=== PATIENT | male | born 1935 | race Caucasian/White ===

== ENCOUNTER 2020-12-31 13:48 | Emergency (ER) | payer MEDICARE, OTHER, SELFPAY ==
--- NOTE | ~2020-12-31 | XR_ITS ---
XR chest 2V 12/31/2020 14:14 Indication: Dizziness and cough Procedure: 2 view chest Comparison: 03/14/2019 Findings: Heart size normal. Status post median sternotomy for CABG. No focal air space disease, pulm onary edema, pleural effusion or suspected pneumothorax. No acute osseous abnormality. Impression: 1: No acute cardiopulmonary disease. Reviewed, dictated and finalized at location A. 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
[2020-12-31 13:49] VITALS: BP 137/69; PULSE 63; RESP 16; TEMP 36.4
--- NOTE | 2020-12-31 13:59 | ECG_ITS ---
Measurements Intervals [place] Rate: 57 P: 34 MO: 186 QRS: 54 QRSD: 138 T: 41 QT: 489 QTc: 478 Interpretive Statements SINUS BRADYCARDIA RIGHT BUNDLE BRANCH BLOCK ABNORMAL ECG Electronically Signed On 12-31-2020 19:43:30 LITHOSTRIPPER by Fermin Brewer D.O.
--- NOTE | 2020-12-31 14:13 | ED.DIZZY ---
HPI - Dizziness General Chief Complaint: Dizziness Stated Complaint: DIZZINESS Time Seen by Provider: 12/31/20 13:56 Source: patient History of Present Illness HPI Narrative: Patient presents with dizziness. Patient reports he was at the store when he stood up felt lightheaded and like he was in a pass out. Symptoms lasted approximately 30 seconds and resolved. He went to a local clinic to be evaluated and they called EMS and referred him to the ER. Reports a history of prior CABG. He reports he feels well now denies any lightheadedness or dizziness. Denies any chest pain or shortness of breath associated with his dizziness denies any recent fevers, cough, congestion. Denies any changes to p.o. intake denies any diarrhea constipation or urinary symptoms Related Data Home Medications Medication Instructions Recorded Confirmed aspirin 02/16/19 atorvastatin 02/16/19 baclofen mg 02/16/19 cetirizine mg 02/16/19 galantamine mg 02/16/19 isosorbide mononitrate mg PO 02/16/19 levothyroxine 02/16/19 memantine mg 02/16/19 metformin mg 02/16/19 metoprolol succinate [Toprol XL] PO 02/16/19 mirabegron [Myrbetriq] mg PO 02/16/19 nitroglycerin mg 02/16/19 olmesartan-hydrochlorothiazide tablet 02/16/19 tamsulosin mg PO 02/16/19 Allergies Allergy/AdvReac Type Severity Reaction Status Date / Time No Known Allergies Allergy Mild Verified 11/14/07 17:42 Review of Systems Review of Systems: CONSTITUTIONAL: Denies fever, chills, or sweats. EYES: Denies visual changes, redness, or discharge. ENT: Denies rhinorrhea, congestion, sore throat, or otalgia. CARDIOVASCULAR: Denies chest pain, palpitations, or edema. RESPIRATORY: Denies cough or dyspnea. GASTROINTESTINAL: Denies abdominal pain, nausea, vomiting, or diarrhea. GENITOURINARY: Denies dysuria or hematuria. SKIN: Denies rash or itching. MUSCULOSKELETAL: Denies back pain, joint pain, or myalgia. NEUROLOGIC: Denies headache, numbness, dizziness, or weakness. PSYCHIATRIC: Denies anxiety or depression. All systems reviewed & are unremarkable except as noted in HPI and below PMFSH Surgical History Surgical History Hx of CABG Social History Social History Smoking status: Current every day smoker Alcohol intake: never Exam Narrative: GENERAL: Well-appearing, well-nourished, and in no acute distress. HEAD: Normocephalic, atraumatic. EYES: PERRLA and EOMI. ENT: Nares clear, no rhinorrhea or epistaxis. Mucous membranes moist. NECK: Supple. No masses. No JVD CHEST: Clear to auscultation. No respiratory distress. No wheezes rales or rhonchi HEART: Regular rate and rhythm. No murmur heard. Normal peripheral pulses. ABDOMEN: Soft, nontender, nondistended, normal active bowel sounds. EXTREMITIES: Normal range of motion. No edema. SKIN: Warm, dry, no rash. NEURO: No focal deficits. Alert and oriented x3. PSYCH: Normal mood and affect. Course Reevaluation(s) Reevaluation #1: Patient is resting comfortably on reevaluation he reports maybe has been having increased urination over the past couple days but came to be without dizziness. He in the family requesting go home. Results reviewed with patient and family patient and family are comfortable outpatient plan Date: 12/31/20 Time: 15:27 Vital Signs Vital signs: Vital Signs Temperature 36.4 C L 12/31/20 13:49 Pulse Rate 63 12/31/20 13:49 Respiratory Rate 16 12/31/20 13:49 Blood Pressure 137/69 12/31/20 13:49 Temperature 36.4 C L 12/31/20 13:49 Pulse Rate 59 L 12/31/20 16:04 Respiratory Rate 16 12/31/20 16:04 Blood Pressure 136/57 L 12/31/20 16:04 Pulse Oximetry 98 12/31/20 16:04 MDM - Dizziness MDM Narrative Medical decision making narrative: H&P as above, vss, pt looks clinically well, exam reassuring, labs with UA concerning for infection and elevated creatinine
[2020-12-31] MEDS: SODIUM CHLORIDE 0.9% IV 500 ML 999 ML IV CONT (14:18)
[2020-12-31 14:35] LABS: Basophils Absolute Auto 0.1 K/mm3 (0.0-0.1); Basophils Percent Auto 1.1 % (0.2-1.2); Eosinophils Absolute Auto 0.4 K/mm3 (0-0.3); Eosinophils Percent Auto 4.1 % (0-4.4); Hematocrit 36.9 % (42.0-52.0); Hemoglobin 12.5 g/dL (14.0-18.0); Immature Granulocyte Absolute 0.03 K/mm3 (0.00-0.031); Immature Granulocyte Percent A 0.3 % (0-0.5); Lymphocytes Absolute Auto 2.62 K/mm3 (0.9-3.2); Lymphocytes Percent Auto 27.1 % (18.3-44.2); Mean Corpuscular HGB Conc 33.9 g/dl (32-36); Mean Corpuscular Hemoglobin 31.5 pg (26-34); Mean Corpuscular Volume 92.9 fl (80-100); Mean Platelet Volume 11.6 fl (7.4-10.4); Monocytes Percent Auto 9.9 % (2.6-8.5); Neutrophils Absolute Auto 5.6 K/mm3 (1.3-6.7); Neutrophils Percent Auto 57.5 % (45.5-73.1); Platelet Count Result 187 k/mm3 (150-375); Red Blood Count 3.97 M/mm3 (4.6-6.20); Red Cell Distribution Width 12.8 % (11.5-14.5); White Blood Count 9.7 K/mm3 (4.5-10.0)
[2020-12-31 14:41] LABS: Alanine Aminotransferase 20 U/L (4-50); Albumin Level 4.3 g/dL (3.5-5.1); Alkaline Phosphatase 68 U/L (38-126); Anion Gap 7 mmol/L (8-16); Aspartate Amino Transferase 27 U/L (17-59); Blood Urea Nitrogen 34 mg/dL (9-20); Calcium 9.9 mg/dL (8.4-10.2); Carbon Dioxide 29 mmol/L (22-30); Chloride 105 mmol/L (98-107); Estimated CRCL calculation 28 ml/min; Estimated Glomerular Filt Rate 36; Glucose 109 mg/dL (65-110); Potassium 4.4 mmol/L (3.4-5.0); Sodium 141 mmol/L (137-145)
[2020-12-31 14:53] LABS: Add Urine Microscopic? YES; Appearance Urine Cloudy (Clear); Bacteria Urine 2+ /hpf; Bilirubin Urine Negative (Negative); Blood Urine Negative (Negative); Color Urine Yellow (Yellow); Glucose Urine UA Negative (Negative); Ketones Urine Negative (Negative); Leukocyte Esterase Ur 2+ LEU/UL (Negative); Mucus Urine Rare /lpf; Nitrate Urine Positive (Negative); Protein Urine Negative (Negative); RBC Urine 0-2 /hpf (0-2); Specific Grav Ur 1.019 (1.001-1.035); Urobilinogen Urine Negative mg/dL (<2.0); WBC Urine 31-50 /hpf
[2020-12-31 16:04] VITALS: BP 136/57; PULSE 59; RESP 16; O2SAT 98
== END 2020-12-31 16:04 | disposition home or self-care (01) ==
PROVIDERS: Emergency Provider Emergency Medicine; PCP Internal Medicine
DX: N39.0 Urinary tract infection, site not specified (principal); R42 Dizziness and giddiness; R79.89 Other specified abnormal findings of blood chemistry; F17.200 Nicotine dependence, unspecified, uncomplicated; Z95.1 Presence of aortocoronary bypass graft
CPT/HCPCS: 36415; 71046; 80053; 81001; 85025; 87077; 87086; 87088; 87186; 93005; 99284; J7040

== ENCOUNTER → 2021-05-17 08:54 | Outpatient (REF) | payer MEDICARE, OTHER, SELFPAY | LOC: ANHLAB 08:54 | PROVIDERS: PCP Internal Medicine; Visit Provider Nurse Practitioner | DX: C44.219 Basal cell carcinoma of skin of left ear and external auricular canal (principal); C44.319 Basal cell carcinoma of skin of other parts of face | CPT/HCPCS: 88305; 88331 ==

== ENCOUNTER → 2021-09-01 17:28 | Outpatient (CLI) | payer MEDICARE, OTHER, SELFPAY ==
--- NOTE | ~2021-09-01 | XR_ITS ---
XR chest 2V DATE: 09/02/2021 10:24 INDICATION: Cough TECHNIQUE: 2 views COMPARISON: 12/31/2020 2 view chest FINDINGS: Status post sternotomy and coronary bypass graft surgery. Normal heart size. Aortic arch ca lcification. No hilar or mediastinal enlargement. No pulmonary infiltrate or consolidation, pleural effusion or pulmonary vascular congestion or pneumo thorax. IMPRESSION: Status post coronary bypass graft surgery No active cardiopulmonary disease Aortic atherosclerosis Reviewed, dictated and finalized at location A.
== END ==
PROVIDERS: PCP Internal Medicine; Visit Provider Internal Medicine
DX: R05.9 Cough, unspecified (principal); I25.10 Atherosclerotic heart disease of native coronary artery without angina pectoris; I70.0 Atherosclerosis of aorta
CPT/HCPCS: 71046

== ENCOUNTER 2021-09-13 14:54 | Emergency (ER) | payer MEDICARE, OTHER, SELFPAY ==
--- NOTE | ~2021-09-13 | XR_ITS ---
XR hip RT min 3V w AP pelvis 09/13/2021 15:18 Indication: Right hip pain Procedure: AP pelvis and 3 views right hip Comparison: No prior studies for comparison. Findings: Pelvic rings are intact. There is mild osteoarthritis of the hips. No fracture or traumatic malalignment. Sacral foramen are symmetric. Impression: 1: Mild osteoarthritis of the right hip. Reviewed, dictated and finalized at location A. Impression: 1: Mild osteoarthritis of the right hip.
[2021-09-13 15:02] VITALS: BP 122/54; PULSE 65; RESP 18; TEMP 36.9; O2SAT 99
--- NOTE | 2021-09-13 15:05 | ED.LOWEXIN ---
HPI - Extremity Injury (Lower) General Chief Complaint: Weakness Stated Complaint: fall, hip injury History of Present Illness HPI Narrative: Pt presents with complaints of right hip pain for quite sometime but worse today. Pt has had frequnt falls per family but patient says he had the pain before that. Pt did fall out of bed today. Pt denies LOC or neck pain. Related Data Home Medications Medication Instructions Recorded Confirmed aspirin 81 mg chewable tablet 02/16/19 atorvastatin 20 mg tablet 02/16/19 baclofen 10 mg tablet mg 02/16/19 cetirizine 10 mg tablet mg 02/16/19 galantamine 8 mg tablet mg 02/16/19 levothyroxine 50 mcg tablet 02/16/19 memantine 5 mg tablet mg 02/16/19 metoprolol succinate 25 mg PO 02/16/19 tablet,extended release 24 hr (Toprol XL) citalopram 10 mg tablet 10 mg PO DAILY 05/17/21 diclofenac potassium PO 05/17/21 magnesium carb,citrate,oxide PO 05/17/21 melatonin 5 mg capsule mg PO .day 05/17/21 vitamin B complex [B PO 05/17/21 Complex-Vitamin B12] Allergies Allergy/AdvReac Type Severity Reaction Status Date / Time No Known Allergies Allergy Mild Verified 11/14/07 17:42 Review of Systems Review of Systems: All systems reviewed & are unremarkable except as noted in HPI and below PMFSH Surgical History Surgical History Hx of CABG Social History Social History Smoking status: Current every day smoker Alcohol intake: never Exam Const: General: healthy appearing and no acute distress Nutritional Appearance: well nourished Orientation/consciousness: patient oriented x3 Limitations: no limitations HENMT: Head: normal to inspection Eyes: Conjunctivae: conjunctivae normal EOM: EOMs intact bilaterally Neck: Neck: normal visual inspection and no meningeal signs Other: no midline tenderness Chest: Chest palpation & inspection: normal inspection of the chest Resp: Effort & Inspection: normal respiratory effort Auscultation: clear to auscultation bilaterally Cardio: Rate: regular rate Rhythm: regular rhythm GI: GI Palp: Yes Soft to palpation Auscultation: normal bowel sounds Back/Spine/Pelvis: Back: no CVA tenderness Cervical Spine: collar present Skin: General skin exam: normal color Wounds: no wounds Neuro: General: patient oriented x3, moves all extremities and no focal motor deficits Speech: normal speech Extrem: General: normal to inspection and no clubbing, cyanosis or edema Other: tender to palpation right hip and pain with active and passive movent of right hip but no obvious deformity or shortening or rotation. Psych: Mental Status: mental status grossly normal Affect: normal affect Attitude: cooperative Course Vital Signs Vital signs: Vital Signs Temperature 98.4 F 09/13/21 15:02 Pulse Rate 65 09/13/21 15:02 Respiratory Rate 18 09/13/21 15:02 Blood Pressure 122/54 L 09/13/21 15:02 Pulse Oximetry 99 09/13/21 15:02 Oxygen Delivery Room Air 09/13/21 15:02 Temperature 98.4 F 09/13/21 15:02 Pulse Rate 65 09/13/21 15:02 Respiratory Rate 18 09/13/21 15:02 Blood Pressure 122/54 L 09/13/21 15:02 Pulse Oximetry 99 09/13/21 15:02 Oxygen Delivery Room Air 09/13/21 15:02 Discharge Plan Discharge Clinical Impression: Arthritis, Frequent falls Patient Disposition: Home, Self-Care Condition: Stable Instructions: Antibiotic Form, Arthritis (ED) Prescriptions: New hydrocodone-acetaminophen 5-325 mg tablet 1 tablet PO Q8H PRN (Reason: pain) Qty: 10 0RF No Action atorvastatin 20 mg tablet cetirizine 10 mg tablet baclofen 10 mg tablet levothyroxine 50 mcg tablet metoprolol succinate [Toprol XL] 25 mg tablet extended release 24 hr PO galantamine 8 mg tablet memantine 5 mg tablet
[2021-09-13] MEDS: KETOROLAC 30 MG/ML VIAL (*BKC) IM (15:19)
--- NOTE | 2021-09-13 19:27 | PCCCNOTE ---
Late entry: Called by ER Charge at 1620 for resources for the patient. Met with Dr. Davidson, patient will be discharged today but requesting to meet with patient about op therapy, and future needs for assisted living or senior care. Met with patient at bedside, he lives with his and uses a walker intermittently for mobility. Provided resources for op therapy, home health and encouraged to make contact with PCP to get the most appropriate ordered. Provided resources for [facility] facilities and the phone number for area of aging. Patient did not think that he needed senior care facilities at this time. Patient verbalized understanding. Updated give to Dr. Davidson.
== END 2021-09-13 17:14 | disposition home or self-care (01) ==
PROVIDERS: Emergency Provider Emergency Medicine; PCP Internal Medicine
DX: M16.11 Unilateral primary osteoarthritis, right hip (principal); R29.6 Repeated falls; Z79.82 Long term (current) use of aspirin; Z95.1 Presence of aortocoronary bypass graft; F17.200 Nicotine dependence, unspecified, uncomplicated
CPT/HCPCS: 73502; 96372; 99283; J1885

== ENCOUNTER 2021-09-20 15:35 | Inpatient (IN) | payer MEDICARE, OTHER, SELFPAY ==
[2021-09-20] VITALS (27 sets, daily range): BP systolic 98–151; BP diastolic 55–79; PULSE 73–87; RESP 16–21; TEMP 36.5–36.6; O2SAT 90–100; BMI 27.5
--- NOTE | ~2021-09-20 | CT_ITS ---
EXAMINATION: CT brain wo con DATE: 09/20/2021 17:33 INDICATION: AMS . TECHNIQUE: Computed tomography (CT) of the head was performed without intravenous contrast. The mA wa s adjusted according to patient size. Iterative reconstruction technique was employed. The dose-lengt h product was 681.00 mGy-cm. COMPARISON: None FINDINGS: No acute intracranial hemorrhage or extra-axial fluid collection. No hydrocephalus, mass, or herniation. No acute ischemic infarct. Unremarkable dural venous sinus attenuation. No acute osseous abnormality. The aerated spaces are clear. Moderate atrophy and mild chronic white matter change. Atherosclerotic intracranial calcification. Ol d left basal ganglia lacunar infarct. Bilateral lens replacements. IMPRESSION: No acute intracranial process. Reviewed, dictated and finalized at location K.
--- NOTE | ~2021-09-20 | XR_ITS ---
XR chest 2V DATE: 09/20/2021 17:45 INDICATION: Cough, confusion, stroke like symptoms. History of CABG. TECHNIQUE: AP and lateral views COMPARISON: 09/01/2021 2 view chest FINDINGS: Mild infiltrate or atelectasis in the lower lung zones, left greater than right. Status post sternotomy and coronary bypass graft surgery. Normal heart size. No pleural effusion or p ulmonary vascular congestion or pneumothorax. IMPRESSION: Mild bibasilar infiltrate or atelectasis, left greater than right Reviewed, dictated and finalized at location B.
[2021-09-20 15:46] LABS: Glucose Point of Care 137 mg/dl (65-105)
--- NOTE | 2021-09-20 15:52 | ECG_ITS ---
Measurements Intervals [place] Rate: 80 P: 5 LA: 154 QRS: 74 QRSD: 134 T: 29 QT: 425 QTc: 492 Interpretive Statements SINUS RHYTHM WITH SINUS ARRHYTHMIA RIGHT BUNDLE BRANCH BLOCK COMPARED TO ECG 12/31/2020 14:21:27 HEART RATE HAS INCREASED Electronically Signed On 09-20-2021 16:39:51 CDT by Graham Alfredo M.D.
[2021-09-20 16:09] LABS: Basophils Percent Auto 0.2 % (0.2-1.2); Eosinophils Percent Auto 0.7 % (0-4.4); Hematocrit 34.7 % (42.0-52.0); Hemoglobin 11.4 g/dL (14.0-18.0); Immature Granulocyte Absolute 0.06 K/mm3 (0.00-0.031); Immature Granulocyte Percent A 1.1 % (0-0.5); Lymphocytes Absolute Auto 1.02 K/mm3 (0.9-3.2); Lymphocytes Percent Auto 18.9 % (18.3-44.2); Mean Corpuscular HGB Conc 32.9 g/dl (32-36); Mean Corpuscular Hemoglobin 30.3 pg (26-34); Mean Corpuscular Volume 92.3 fl (80-100); Mean Platelet Volume 10.9 fl (7.4-10.4); Monocytes Absolute Auto 0.6 K/mm3 (0.1-0.6); Monocytes Percent Auto 10.8 % (2.6-8.5); Neutrophils Absolute Auto 3.7 K/mm3 (1.3-6.7); Neutrophils Percent Auto 68.3 % (45.5-73.1); Platelet Count Result 166 k/mm3 (150-375); Red Blood Count 3.76 M/mm3 (4.6-6.20); Red Cell Distribution Width 13.9 % (11.5-14.5); White Blood Count 5.4 K/mm3 (4.5-10.0)
[2021-09-20 16:12] LABS: Add Urine Microscopic? YES; Appearance Urine Slightly Cloudy (Clear); Bilirubin Urine Negative (Negative); Blood Urine 2+ (Negative); Color Urine Yellow (Yellow); Glucose Urine UA Negative (Negative); Ketones Urine Negative (Negative); Leukocyte Esterase Ur 1+ LEU/UL (Negative); Nitrate Urine Positive (Negative); Protein Urine 1+ mg/dL (Negative); Urobilinogen Urine 0.2 mg/dL (<2.0)
[2021-09-20 16:17] LABS: Alanine Aminotransferase 36 U/L (6-50); Albumin Level 3.8 g/dL (3.5-5.1); Alkaline Phosphatase 69 U/L (38-126); Anion Gap 10 mmol/L (8-16); Aspartate Amino Transferase 68 U/L (17-59); Bilirubin,Total 1.1 mg/dL (0.2-1.3); Blood Urea Nitrogen 56 mg/dL (9-20); Calcium 8.9 mg/dL (8.4-10.2); Carbon Dioxide 26 mmol/L (22-30); Chloride 98 mmol/L (98-107); Estimated CRCL calculation 24 ml/min; Estimated Glomerular Filt Rate 30; Glucose 117 mg/dL (65-110); Potassium 4.4 mmol/L (3.4-5.0); Sodium 134 mmol/L (137-145)
[2021-09-20 16:21] LABS: Bacteria Urine 2+ /hpf; Mucus Urine Rare /lpf; Squamous Epithelial Cell Urine Rare /hpf (Few); WBC Clumps Urine Present /HPF; WBC Urine 16-20 /hpf
[2021-09-20 16:29] LABS: Prothrombin Time 12.9 Seconds (11.1-14.7)
[2021-09-20 16:30] LABS: Partial Thromboplastin Time 28.1 SECONDS (22.3-36.8)
[2021-09-20 16:31] LABS: Amphetamine Screen Urine Negative (Negative); Barbiturate Screen Urine Negative (Negative); Benzodiazepines Screen Urine Negative (Negative); Cannabinoid Screen Urine Negative (Negative); Cocaine Screen Urine Negative (Negative); Methadone Screen Urine Negative (Negative); Opiate Screen Urine Positive (Negative); Phencyclidine Screen Urine Negative (Negative)
--- NOTE | 2021-09-20 17:09 | ED.FALL ---
HPI - Fall General Chief Complaint: Fall <Faina Escobar PA-C - Last Filed: 09/20/21 18:19> Stated Complaint: MULTIPLE FALLS, STROKE SYMPTOMS (FAST -) <Faina Escobar PA-C - Last Filed: 09/20/21 18:19> Time Seen by Provider: 09/20/21 16:51 <Faina Escobar PA-C - Last Filed: 09/20/21 18:19> History of Present Illness HPI Narrative: Patient is an 86-year-old male with history of hypertension, Alzheimer's dementia, diabetes, CAD s/p CABG here for evaluation with his daughter for evaluation of multiple medical complaints. History obtained largely from daughter as patient is a poor historian. Daughter tells me that patient has been not but is up for the past several weeks. She states that he has been weak when he ambulates, has had intermittent troubles with word finding, been incontinent of stool and urine, and has been more confused than his baseline. He lives at home with his , who also has Alzheimer's dementia. Daughter tells me that they have had trouble taking care of him at home and are looking into obtaining care at home. Additionally reports that patient has had a cough over the past several, COVID test have been negative. Patient denies any chest pain, shortness of breath, headaches, abdominal pain. <Faina Escobar PA-C - Last Filed: 09/20/21 18:19> Related Data Home Medications: Home Medications Medication Instructions Recorded Confirmed aspirin 81 mg chewable tablet 02/16/19 atorvastatin 20 mg tablet 02/16/19 baclofen 10 mg tablet mg 02/16/19 cetirizine 10 mg tablet mg 02/16/19 galantamine 8 mg tablet mg 02/16/19 levothyroxine 50 mcg tablet 02/16/19 memantine 5 mg tablet mg 02/16/19 metoprolol succinate 25 mg PO 02/16/19 tablet,extended release 24 hr (Toprol XL) citalopram 10 mg tablet 10 mg PO DAILY 05/17/21 diclofenac potassium PO 05/17/21 magnesium carb,citrate,oxide PO 05/17/21 melatonin 5 mg capsule mg PO .day 05/17/21 vitamin B complex [B PO 05/17/21 Complex-Vitamin B12] <Faina Escobar PA-C - Last Filed: 09/20/21 18:19> Allergies/Adverse Reactions: Allergies Allergy/AdvReac Type Severity Reaction Status Date / Time No Known Allergies Allergy Mild Verified 11/14/07 17:42 <Faina Escobar PA-C - Last Filed: 09/20/21 18:19> Review of Systems Review of Systems: Gen: Denies fevers or chills Eyes: Denies eye pain or visual change ENT: Denies congestion Respiratory: Reports cough. Denies shortness of breath CV: Denies chest pain or palpitations GI: Denies abdominal pain nausea, emesis or diarrhea : denies burning, urgency, frequency or hematuria Musculoskeletal: Denies back pain or muscle pain Neuro: Denies numbness, tingling, weakness or focal weakness Skin: Denies rash Except as documented, all other systems reviewed and negative <Faina Escobar PA-C - Last Filed: 09/20/21 18:19> [facility] Surgical History Surgical History: Surgical History Hx of CABG <Faina Escobar PA-C - Last Filed: 09/20/21 18:19> Social History Social History: Social History Smoking status: Current every day smoker Alcohol intake: never <Faina Escobar PA-C - Last Filed: 09/20/21 18:19> Exam Narrative: APPEARANCE: Well appearing, no pain in distress, well-nourished. Head: Normocephalic and atraumatic. EYES: PERRLA/EOMI, conjunctivae clear NOSE: No nasal drainage EARS: External ear normal in appearance THROAT: Oropharynx is clear. Mucous membranes are moist. NECK: Supple. No adenopathy, no masses. RESPIRATORY: Airway patent, respirations nonlabored. expiratory wheezing in right upper lung nascimento. no rales, rhonchi. CARDIOVASCULAR: Regular rate and rhythm without murmurs, rubs, or gallops. ABDOMINAL: Normoactive bowel sounds. Soft, nontender, nondistended. No re
[2021-09-20] MEDS: ALBUTEROL SULFATE NEB 2.5 MG/3 ML INH INHALATION (18:24)
[2021-09-20] MEDS: SODIUM CHLORIDE 0.9% IV 1,000 ML 999 ML IV CONT (19:24)
[2021-09-20 19:49] LABS: SARS-CoV-2 RNA PCR Positive
--- NOTE | 2021-09-20 22:57 | PM.IMHP ---
H&P: HPI History of Present Illness Date/Time: 09/20/21 22:00 Chief Complaint: Confusion Narrative: this is an 86-year-old male patient with a history of Alzheimer's. The patient was brought into the emergency room by his daughter today due to generalized weakness and confusion over the last several weeks. The patient lives with his who also has Alzheimer's dementia. The patient's daughter is concerned about finding placement for the patient. She is concerned about the couple living home by themselves with dementia. The patient had some wheezing in the emergency room and was given a nebulizer treatment. He has evidence of possible pneumonia on chest x-ray and his COVID test was found to be positive. He also has evidence of a UTI with elevated white blood cells nitrates and bacteria. Patient was started on Rocephin and azithromycin in the emergency room. His creatinine is up to 2.1 from 1.8 noted on 12/31/2020. the patient was given IV fluids in the emergency room. 1+ leukocyte at esterase with 2+ urine bacteria. The patient was also positive for opioids. He was also positive for COVID here. Patient's oxygen level dropped down to 91% at 1 point in the emergency room and the patient was started on oxygen at 2 L per nasal cannula. He was given Rocephin, azithromycin, albuterol, and IV fluids in the emergency room. The patient is being admitted to inpatient services on the date of service of 09/20/2021. Review of Systems Review of Systems: All systems reviewed & are unremarkable except as noted in HPI and below Constitutional: Constitutional: Reports as per HPI and Reports no additional constitutional complaints Eyes: Eyes: Reports as per HPI and Reports no additional eye complaints ENT: Reports system reviewed and no additional complaints, except as documented and Reports Normal hearing present Cardiovascular: Cardiovascular: Reports no additional cardiovascular complaints Respiratory: Respiratory: Reports no additional respiratory complaints and Reports no additional respiratory complaints Gastrointestinal: Gastrointestinal: Reports as per HPI and Reports no additional gastrointestinal complaints Musculoskeletal: Musculoskeletal: Reports no additional musculoskeletal complaints Integumentary/Breasts: Skin/Breast: Reports system reviewed and no additional complaints, except as docu and Reports as per HPI Neurologic: Reports system reviewed and no additional complaints, except as documented, Reports as per HPI and Reports Normal hearing present Psychiatric: Psychiatric: Reports no additional psychiatric complaints and Reports as per HPI Endocrine: Endocrine: Reports no additional endocrine complaints Hematologic/Lymphatic: Hematologic/Lymphatic: Reports no additional hematologic/lymphatic complaints Allergic/Immunologic: Allergic/Immunologic: Reports no additional allergic/immunologic complaints [facility] Past Medical History Medical History (Updated 09/20/21 @ 23:33 by Ela Yi NP) Basal cell carcinoma of scalp BPH (benign prostatic hyperplasia) CAD (coronary artery disease) Dementia DM2 (diabetes mellitus, type 2) Gout HTN (hypertension) with goal to be determined Hyperlipidemia Hypothyroidism Surgical History Surgical History (Updated 09/20/21 @ 23:08 by Ela Yi NP) History of tonsillectomy Hx laparoscopic cholecystectomy Hx of CABG Family History Family History (Updated 09/20/21 @ 23:10 by Ela Yi NP) Mother Acute myocardial infarction Father Cancer Sibling Cancer Social History Social History (Updated 09/20/21 @ 23:16 by Ela Yi NP) Social History: the patient is and lives with his . He tells me that he has 3 children. 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 He is a former smoker and denies any alcohol marijuana or illicit drugs. Code status full code Smoking status: Former smoker Alcohol intake:
[2021-09-20 23:57] LABS: Alanine Aminotransferase 33 U/L (6-50); Estimated CRCL calculation 26 ml/min; Estimated Glomerular Filt Rate 34
[2021-09-21] VITALS (7 sets, daily range): BP systolic 113–153; BP diastolic 59–65; PULSE 70–77; RESP 16–18; TEMP 35.5–36.2; O2SAT 91–99
[2021-09-21] LABS: INR 1.1; Prothrombin Time 13.3 Seconds (11.1-14.7)
[2021-09-21] MEDS: CITALOPRAM HYDROBROMIDE 10 MG TABLET PO ×2 (00:11→20:46)
[2021-09-21] MEDS: guaiFENesin 600 MG/DEXTROMETHORPHAN 30 MG SR TAB 12 HR 1 TAB PO ×3 (00:11→20:45)
[2021-09-21] MEDS: LORATADINE 5 MG TABLET PO ×2 (00:11→20:45)
[2021-09-21] MEDS: REMDESIVIR 200 MG/NS 250 ML 200 MG/250 ML BAG 250 MG IVPB (00:32)
--- NOTE | 2021-09-21 00:51 | ADMGEN ---
This patient, Jennifer Conley, was admitted to [facility] Surg Room 330-01. Patient/family oriented to hospital policies and general routines including ID bracelet, bed and alarms, visiting hours, pain management, procedures, bathroom and other care routines, personal items, smoking policy, room service/diet, and visiting hours. Information on how to activate the Rapid Response Team has been discussed. Patient/Family are encouraged to report perceived risks to care and to ask questions if they do not understand what they are told or what they should do.
[2021-09-21] MEDS: LEVOTHYROXINE SODIUM 50 MCG TABLET PO (06:23)
[2021-09-21 06:46] LABS: Basophils Percent Auto 0.4 % (0.2-1.2); Eosinophils Absolute Auto 0.1 K/mm3 (0-0.3); Eosinophils Percent Auto 2.5 % (0-4.4); Hematocrit 33.8 % (42.0-52.0); Hemoglobin 10.7 g/dL (14.0-18.0); Immature Granulocyte Absolute 0.04 K/mm3 (0.00-0.031); Immature Granulocyte Percent A 0.9 % (0-0.5); Lymphocytes Absolute Auto 0.98 K/mm3 (0.9-3.2); Lymphocytes Percent Auto 21.9 % (18.3-44.2); Mean Corpuscular HGB Conc 31.7 g/dl (32-36); Mean Corpuscular Hemoglobin 30.1 pg (26-34); Mean Corpuscular Volume 94.9 fl (80-100); Mean Platelet Volume 11.1 fl (7.4-10.4); Monocytes Absolute Auto 0.4 K/mm3 (0.1-0.6); Monocytes Percent Auto 8.3 % (2.6-8.5); Platelet Count Result 163 k/mm3 (150-375); Red Blood Count 3.56 M/mm3 (4.6-6.20); Red Cell Distribution Width 13.9 % (11.5-14.5); White Blood Count 4.5 K/mm3 (4.5-10.0)
[2021-09-21 06:59] LABS: INR 1.1; Prothrombin Time 13.5 Seconds (11.1-14.7)
[2021-09-21 07:04] LABS: Lactic Acid Reflex 0.6 mmol/L (0.7-2.0)
[2021-09-21 07:54] LABS: Glucose Point of Care 94 mg/dl (65-105)
[2021-09-21 08:03] LABS: Alanine Aminotransferase 33 U/L (6-50); Albumin Level 3.4 g/dL (3.5-5.1); Alkaline Phosphatase 61 U/L (38-126); Anion Gap 8 mmol/L (8-16); Aspartate Amino Transferase 66 U/L (17-59); Blood Urea Nitrogen 46 mg/dL (9-20); Calcium 8.6 mg/dL (8.4-10.2); Carbon Dioxide 28 mmol/L (22-30); Chloride 100 mmol/L (98-107); Estimated CRCL calculation 28 ml/min; Estimated Glomerular Filt Rate 36; Glucose 98 mg/dL (65-110); Lactate Dehydrogenase 673 U/L (313-618); Potassium 3.9 mmol/L (3.4-5.0); Sodium 136 mmol/L (137-145)
[2021-09-21] MEDS: ASPIRIN 81 MG CHEWABLE TABLET PO (09:15)
[2021-09-21] MEDS: allopurinoL 100 MG TABLET PO (09:15)
[2021-09-21] MEDS: MEMANTINE 10 MG TABLET PO ×2 (09:15→17:21)
[2021-09-21] MEDS: CYANOCOBALAMIN 1,000 MCG TABLET 1000 MCG PO (09:15)
[2021-09-21] MEDS: TAMSULOSIN HCL 0.4 MG CAPSULE PO (09:15)
[2021-09-21] MEDS: ATORVASTATIN 20 MG TABLET PO (09:15)
[2021-09-21] MEDS: METOPROLOL SUCCINATE EXT REL 25 MG TABCR PO (09:16)
[2021-09-21] MEDS: DEXAMETHASONE 2 MG TABLET 6 MG PO (09:16)
[2021-09-21] MEDS: ENOXAPARIN 40 MG/0.4 ML SYRINGE SUB-Q (09:16)
[2021-09-21] MEDS: FLUTICASONE PROPIONATE 0.05% NA SPR 16 GM BTL (*BKC) 1 SPRAY NASAL (09:16)
[2021-09-21] MEDS: MIRABEGRON 50 MG ER TABLET PO (09:16)
[2021-09-21] MEDS: GALANTAMINE HYDROBROMIDE 8 MG TABLET 16 MG PO ×2 (09:16→17:21)
[2021-09-21 11:49] LABS: Glucose Point of Care 142 mg/dl (65-105)
--- NOTE | 2021-09-21 12:20 | PM.IMPN ---
Progress Note: A&P Assessment and Plan (1) COVID: Code(s): U07.1 - COVID-19 Status: Acute Assessment and Plan: - requiring oxygen at 2 L per nasal cannula. Patient's O2 saturations dropped down to 90% - continue to monitor labs - continue with REMdesivir - continue with Decadron - continue with contact and respiratory isolation - possible pneumonia was seen on chest x-ray. He was given a azithromycin in the emergency room. But this could possibly just be the COVID. I did not continue with the a azithromycin at this time. - P.r.n. albuterol - continue guaifenesin (2) Urinary tract infection: Code(s): N39.0 - Urinary tract infection, site not specified Status: Acute Assessment and Plan: - continue with Rocephin - urine culture pending (3) HTN (hypertension) with goal to be determined: Code(s): I10 - Essential (primary) hypertension Status: Acute Assessment and Plan: - Benicar on hold for now due to possible acute on chronic renal failure - continue with metoprolol (4) DM2 (diabetes mellitus, type 2): Code(s): E11.9 - Type 2 diabetes mellitus without complications Status: Acute Assessment and Plan: - patient no longer on diabetic medication. His blood sugar was 117-137 today. - Since the patient is on Decadron I did order him Accu-Cheks with sliding scale. (5) Acute kidney injury: Code(s): N17.9 - Acute kidney failure, unspecified Status: Acute Assessment and Plan: Creatinine is 1.9 this morning. Baseline is about the same. Monitor (6) Gout: Code(s): M10.9 - Gout, unspecified Status: Acute Assessment and Plan: - continue with allopurinol (7) Hyperlipidemia: Code(s): E78.5 - Hyperlipidemia, unspecified Status: Acute Assessment and Plan: - continue with simvastatin for now however of his liver enzymes become elevated may consider Holding. (8) BPH (benign prostatic hyperplasia): Code(s): N40.0 - Benign prostatic hyperplasia without lower urinary tract symptoms Status: Acute Assessment and Plan: - Continue with Flomax (9) Hypothyroidism: Code(s): E03.9 - Hypothyroidism, unspecified Status: Acute Assessment and Plan: - continue with home dose of levothyroxine (10) Dementia: Code(s): F03.90 - Unspecified dementia without behavioral disturbance Status: Acute Assessment and Plan: - continue with Arnol Subjective Date/time seen: 09/21/21 12:20 Doing okay today. No new complaints. No chest pain, denies any excessive shortness of breath. Currently on 2liters of oxygen per nasal cannula Exam Const: General: cooperative, comfortable, no acute distress, well developed, alert, awake, Physically active and ill appearing Nutritional Appearance: average body habitus and well nourished Orientation/consciousness: oriented to person, oriented to place, oriented to time and patient oriented x3 Limitations: no limitations HENMT: Head: normal to inspection, No palpable skull fracture present, normocephalic and atraumatic Ears: hearing grossly normal bilaterally and external ears normal General nose exam: Normal external nose present and Normal nares present Eyes: General: appearance normal, both eyes and all related structures Alignment and Position: alignment normal Periorbital: periorbital findings normal Eyelids: eyelids normal Sclera: sclerae normal Pupils: Equal, round and reactive pupils present EOM: EOMs intact bilaterally Neck: Neck: normal visual inspection, full ROM, no lymphadenopathy, trachea midline and supple Lymphatic: no lymphadenopathy noted Chest: Chest palpation & inspection: normal inspection of the chest Resp: Effort & Inspection: normal respiratory effort Auscultation: clear to auscultation bilaterally Percussion: percussion normal Other: patient was placed on oxygen at 2 L per nasal cannula.
[2021-09-21 16:14] LABS: Glucose Point of Care 167 mg/dl (65-105)
[2021-09-21 21:44] LABS: Glucose Point of Care 147 mg/dl (65-105)
[2021-09-21] MEDS: REMDESIVIR 100 MG/NS 250 ML 100 MG/250 ML BAG 250 MG IVPB (22:38)
[2021-09-22 05:41] VITALS: BP 160/83; PULSE 69; RESP 18; TEMP 36.1; O2SAT 95
[2021-09-22 06:59] LABS: Hematocrit 38.1 % (42.0-52.0); Hemoglobin 12.6 g/dL (14.0-18.0); Mean Corpuscular HGB Conc 33.1 g/dl (32-36); Mean Corpuscular Hemoglobin 30.7 pg (26-34); Mean Corpuscular Volume 92.7 fl (80-100); Mean Platelet Volume 10.9 fl (7.4-10.4); Platelet Count Result 189 k/mm3 (150-375); Red Blood Count 4.11 M/mm3 (4.6-6.20); Red Cell Distribution Width 13.4 % (11.5-14.5); White Blood Count 11.4 K/mm3 (4.5-10.0)
[2021-09-22 07:21] LABS: INR 1.1; Prothrombin Time 13.7 Seconds (11.1-14.7)
[2021-09-22 07:37] LABS: Alanine Aminotransferase 38 U/L (6-50); Anion Gap 12 mmol/L (8-16); Blood Urea Nitrogen 45 mg/dL (9-20); CRP 5.2 mg/dL (<1.0); Calcium 9.1 mg/dL (8.4-10.2); Carbon Dioxide 26 mmol/L (22-30); Chloride 99 mmol/L (98-107); Estimated CRCL calculation 31 ml/min; Estimated Glomerular Filt Rate 41; Glucose 130 mg/dL (65-110); Potassium 4.4 mmol/L (3.4-5.0); Sodium 137 mmol/L (137-145)
[2021-09-22 07:41] LABS: Glucose Point of Care 137 mg/dl (65-105)
[2021-09-22 10:00] VITALS: PULSE 68; RESP 18; O2SAT 91
[2021-09-22] MEDS: ATORVASTATIN 20 MG TABLET PO (10:11)
[2021-09-22] MEDS: ENOXAPARIN 40 MG/0.4 ML SYRINGE SUB-Q (10:11)
[2021-09-22] MEDS: ASPIRIN 81 MG CHEWABLE TABLET PO (10:11)
[2021-09-22] MEDS: DEXAMETHASONE 2 MG TABLET 6 MG PO (10:11)
[2021-09-22] MEDS: CYANOCOBALAMIN 1,000 MCG TABLET 1000 MCG PO (10:11)
[2021-09-22] MEDS: allopurinoL 100 MG TABLET PO (10:11)
[2021-09-22 10:12] VITALS: PULSE 68
[2021-09-22] MEDS: guaiFENesin 600 MG/DEXTROMETHORPHAN 30 MG SR TAB 12 HR 1 TAB PO ×2 (10:12→20:44)
[2021-09-22] MEDS: METOPROLOL SUCCINATE EXT REL 25 MG TABCR PO (10:12)
[2021-09-22] MEDS: FLUTICASONE PROPIONATE 0.05% NA SPR 16 GM BTL (*BKC) 1 SPRAY NASAL (10:12)
[2021-09-22] MEDS: GALANTAMINE HYDROBROMIDE 8 MG TABLET 16 MG PO ×2 (10:12→17:59)
[2021-09-22] MEDS: MEMANTINE 10 MG TABLET PO ×2 (10:12→17:59)
[2021-09-22] MEDS: MIRABEGRON 50 MG ER TABLET PO (10:12)
[2021-09-22] MEDS: TAMSULOSIN HCL 0.4 MG CAPSULE PO (10:12)
[2021-09-22 11:35] LABS: Glucose Point of Care 133 mg/dl (65-105)
[2021-09-22 13:52] VITALS: BP 121/92; PULSE 64; RESP 18; TEMP 35.7; O2SAT 96
[2021-09-22 16:19] LABS: Glucose Point of Care 170 mg/dl (65-105)
--- NOTE | 2021-09-22 18:10 | PM.IMPN ---
Progress Note: A&P Assessment and Plan (1) COVID: Code(s): U07.1 - COVID-19 Status: Acute Assessment and Plan: - requiring oxygen at 2 L per nasal cannula. Patient's O2 saturations dropped down to 90% - continue to monitor labs - continue with REMdesivir - continue with Decadron - continue with contact and respiratory isolation - possible pneumonia was seen on chest x-ray. He was given a azithromycin in the emergency room. But this could possibly just be the COVID. I did not continue with the a azithromycin at this time. - P.r.n. albuterol - continue guaifenesin (2) Urinary tract infection: Code(s): N39.0 - Urinary tract infection, site not specified Status: Acute Assessment and Plan: Urine culture showed pansensitive Citrobacter, continue Rocephin (3) HTN (hypertension) with goal to be determined: Code(s): I10 - Essential (primary) hypertension Status: Acute Assessment and Plan: Hold nephrotoxic agents, stable (4) DM2 (diabetes mellitus, type 2): Code(s): E11.9 - Type 2 diabetes mellitus without complications Status: Acute Assessment and Plan: Accu-Cheks plus sliding scale insulin, stable (5) Acute kidney injury: Code(s): N17.9 - Acute kidney failure, unspecified Status: Acute Assessment and Plan: Improving, down to 1.6 today (6) Gout: Code(s): M10.9 - Gout, unspecified Status: Acute Assessment and Plan: - continue with allopurinol (7) Hyperlipidemia: Code(s): E78.5 - Hyperlipidemia, unspecified Status: Acute Assessment and Plan: - continue with simvastatin for now however of his liver enzymes become elevated may consider Holding. (8) BPH (benign prostatic hyperplasia): Code(s): N40.0 - Benign prostatic hyperplasia without lower urinary tract symptoms Status: Acute Assessment and Plan: - Continue with Flomax (9) Hypothyroidism: Code(s): E03.9 - Hypothyroidism, unspecified Status: Acute Assessment and Plan: - continue with home dose of levothyroxine (10) Dementia: Code(s): F03.90 - Unspecified dementia without behavioral disturbance Status: Acute Assessment and Plan: - continue with Namenda Subjective Date/time seen: 09/22/21 18:10 Interval history: No overnight events noted. No chest pain or shortness of breath. No nausea, vomiting or diarrhea. No fevers or chills. Review of Systems Review of Systems: All systems reviewed & are unremarkable except as noted in HPI and below Exam Narrative: General: No acute distress, alert and oriented per baseline HEENT: Atraumatic, normocephalic, mucous membranes moist CV: Regular rate and rhythm, S1, S2 Lungs: Clear to auscultation bilaterally, no rales or crackles noted, no wheezes, good air entry Abdomen: Soft, nontender, nondistended Extremities: Normal to inspection Skin: No rashes noted, no lesions or wounds seen Psych: Euthymic, normal affect Objective Data Vital Signs Vital Signs: Vital Signs - 24 hr 09/21/21 21:36 09/21/21 20:00 09/22/21 05:41 Temperature 96.7 F L 96.9 F L Pulse Rate 70 70 69 Respiratory Rate 18 18 18 Blood Pressure 153/65 H 160/83 H Pulse Oximetry 92 92 95 Oxygen Delivery Room Air 09/22/21 10:12 09/22/21 10:00 09/22/21 13:52 Temperature 96.3 F L Pulse Rate 68 68 64 Respiratory Rate 18 18 Blood Pressure 121/92 H Pulse Oximetry 91 96 Oxygen Delivery Room Air Intake/Output Intake/Output: Intake & Output 09/19/21 09/20/21 09/21/21 09/22/21 23:59 23:59 23:59 23:59 Intake Total 1300 2960 1900 Output Total 200 Balance 1300 2960 1700 Meds/Results Medications: Active Medications Generic Name Dose Route Start Last Admin Trade Name Freq PRN Reason Stop Dose Admin Acetaminophen 500 mg 09/20/21 23:26 Acetaminophen 500 Mg Tablet PO Q8H PRN Pain (Scale Score 1-3)
[2021-09-22] MEDS: CITALOPRAM HYDROBROMIDE 10 MG TABLET PO (20:44)
[2021-09-22] MEDS: REMDESIVIR 100 MG/NS 250 ML 100 MG/250 ML BAG 250 MG IVPB (20:44)
[2021-09-22] MEDS: LORATADINE 5 MG TABLET PO (20:44)
[2021-09-22 21:23] LABS: Glucose Point of Care 166 mg/dl (65-105)
[2021-09-22 22:00] VITALS: BP 148/72; PULSE 60; RESP 18; TEMP 35.8; O2SAT 95
[2021-09-23] MEDS: LEVOTHYROXINE SODIUM 50 MCG TABLET PO (05:22)
[2021-09-23 06:00] VITALS: BP 147/73; PULSE 55; RESP 16; TEMP 35.8; O2SAT 98
[2021-09-23 08:00] VITALS: BP 148/56; PULSE 57; RESP 18; TEMP 35.9; O2SAT 95
[2021-09-23 08:03] LABS: INR 1.2; Prothrombin Time 14.4 Seconds (11.1-14.7)
[2021-09-23 08:14] LABS: Alanine Aminotransferase 36 U/L (6-50); Estimated CRCL calculation 31 ml/min; Estimated Glomerular Filt Rate 41
[2021-09-23] MEDS: TAMSULOSIN HCL 0.4 MG CAPSULE PO (08:30)
[2021-09-23] MEDS: DEXAMETHASONE 2 MG TABLET 6 MG PO (08:30)
[2021-09-23] MEDS: guaiFENesin 600 MG/DEXTROMETHORPHAN 30 MG SR TAB 12 HR 1 TAB PO ×2 (08:30→21:05)
[2021-09-23] MEDS: MIRABEGRON 50 MG ER TABLET PO (08:31)
[2021-09-23] MEDS: ATORVASTATIN 20 MG TABLET PO (08:31)
[2021-09-23] MEDS: GALANTAMINE HYDROBROMIDE 8 MG TABLET 16 MG PO ×2 (08:32→18:17)
[2021-09-23] MEDS: ASPIRIN 81 MG CHEWABLE TABLET PO (08:32)
[2021-09-23] MEDS: MEMANTINE 10 MG TABLET PO ×2 (08:32→18:17)
[2021-09-23] MEDS: ENOXAPARIN 40 MG/0.4 ML SYRINGE SUB-Q (08:32)
[2021-09-23] MEDS: CYANOCOBALAMIN 1,000 MCG TABLET 1000 MCG PO (08:32)
[2021-09-23] MEDS: allopurinoL 100 MG TABLET PO (08:32)
[2021-09-23] MEDS: METOPROLOL SUCCINATE EXT REL 25 MG TABCR PO (08:33)
[2021-09-23] MEDS: FLUTICASONE PROPIONATE 0.05% NA SPR 16 GM BTL (*BKC) 1 SPRAY NASAL (08:33)
[2021-09-23 11:52] LABS: Glucose Point of Care 132 mg/dl (65-105)
[2021-09-23 11:54] VITALS: BP 137/69; PULSE 61; RESP 18; TEMP 36.1; O2SAT 96
[2021-09-23 16:00] VITALS: BP 173/59; PULSE 67; RESP 18; TEMP 36.3; O2SAT 95
--- NOTE | 2021-09-23 16:17 | PM.IMPN ---
Progress Note: A&P Assessment and Plan (1) COVID: Code(s): U07.1 - COVID-19 Status: Acute Assessment and Plan: Doing well on room air, will be stable for discharge to rehab tomorrow to complete 10 days total of Decadron and 4 doses of remdesivir, no need for 5 as patient has been on room air for the last few days (2) Urinary tract infection: Code(s): N39.0 - Urinary tract infection, site not specified Status: Acute Assessment and Plan: Urine culture showed pansensitive Citrobacter, continue Rocephin, will switch to cefdinir at discharge to complete 7 days total of antibiotics (3) HTN (hypertension) with goal to be determined: Code(s): I10 - Essential (primary) hypertension Status: Acute Assessment and Plan: Hold nephrotoxic agents, stable (4) DM2 (diabetes mellitus, type 2): Code(s): E11.9 - Type 2 diabetes mellitus without complications Status: Acute Assessment and Plan: Accu-Cheks plus sliding scale insulin, stable (5) Acute kidney injury: Code(s): N17.9 - Acute kidney failure, unspecified Status: Acute Assessment and Plan: creatinine appears stable at 1.6 (6) Gout: Code(s): M10.9 - Gout, unspecified Status: Acute Assessment and Plan: continue allopurinol (7) Hyperlipidemia: Code(s): E78.5 - Hyperlipidemia, unspecified Status: Acute Assessment and Plan: will hold statin for a few weeks after COVID (8) BPH (benign prostatic hyperplasia): Code(s): N40.0 - Benign prostatic hyperplasia without lower urinary tract symptoms Status: Acute Assessment and Plan: stable on Flomax (9) Hypothyroidism: Code(s): E03.9 - Hypothyroidism, unspecified Status: Acute Assessment and Plan: continue levothyroxine, check TSH as an outpatient (10) Dementia: Code(s): F03.90 - Unspecified dementia without behavioral disturbance Status: Acute Assessment and Plan: pleasantly confused, at baseline mentation, continue Namenda Subjective Date/time seen: 09/23/21 16:17 Interval history: Patient continues to be somewhat confused, but pleasant and redirectable. No overnight events noted. No chest pain or shortness of breath. No nausea, vomiting or diarrhea. No fevers or chills. Review of Systems Review of Systems: 12 point review of systems was assessed and was negative except as noted in the HPI Exam Narrative: General: No acute distress, alert and oriented per baseline HEENT: Atraumatic, normocephalic, mucous membranes moist CV: Regular rate and rhythm, S1, S2 Lungs: Clear to auscultation bilaterally, no rales or crackles noted, no wheezes, good air entry Abdomen: Soft, nontender, nondistended Extremities: Normal to inspection Skin: No rashes noted, no lesions or wounds seen Psych: Euthymic, normal affect Objective Data Vital Signs Vital Signs: Vital Signs - 24 hr 09/22/21 22:00 09/23/21 06:00 09/23/21 08:00 Temperature 96.5 F L 96.5 F L 96.7 F L Pulse Rate 60 55 L 57 L Respiratory Rate 18 16 18 Blood Pressure 148/72 H 147/73 H 148/56 H Pulse Oximetry 95 98 95 Oxygen Delivery 09/23/21 08:00 09/23/21 11:54 Temperature 96.9 F L Pulse Rate 57 L 61 Respiratory Rate 18 18 Blood Pressure 137/69 Pulse Oximetry 95 96 Oxygen Delivery Room Air Intake/Output Intake/Output: Intake & Output 09/20/21 09/21/21 09/22/21 09/23/21 23:59 23:59 23:59 23:59 Intake Total 1300 3210 1950 540 Output Total 200 Balance 1300 3210 1750 540 Meds/Results Medications: Active Medications Generic Name Dose Route Start Last Admin Trade Name Freq PRN Reason Stop Dose Admin Acetaminophen 500 mg 09/20/21 23:26 Acetaminophen 500 Mg Tablet PO Q8H PRN Pain (Scale Score 1-3) Albuterol 2 puff 09/20/21 23:24 Albuterol Sulfate (*Sp) Aerosol 1 Puff INHALATION Q6HRT PRN Corinna
[2021-09-23 16:59] LABS: Glucose Point of Care 159 mg/dl (65-105)
[2021-09-23 20:00] VITALS: BP 185/68; PULSE 67; RESP 14; TEMP 36.3; O2SAT 92; O2SAT 95
[2021-09-23 20:41] VITALS: O2SAT 92
[2021-09-23] MEDS: LORATADINE 5 MG TABLET PO (21:05)
[2021-09-23] MEDS: CITALOPRAM HYDROBROMIDE 10 MG TABLET PO (21:05)
[2021-09-23] MEDS: REMDESIVIR 100 MG/NS 250 ML 100 MG/250 ML BAG 250 MG IVPB (21:58)
[2021-09-23 22:42] LABS: Glucose Point of Care 157 mg/dl (65-105)
[2021-09-24] VITALS: BP 169/68; PULSE 57; RESP 14; TEMP 36.1; O2SAT 96
[2021-09-24 04:00] VITALS: BP 176/66; PULSE 58; RESP 16; TEMP 36.3; O2SAT 98
[2021-09-24 04:43] LABS: Glucose Point of Care 131 mg/dl (65-105)
[2021-09-24] MEDS: LEVOTHYROXINE SODIUM 50 MCG TABLET PO (05:51)
[2021-09-24 06:57] LABS: Alanine Aminotransferase 34 U/L (6-50); Estimated CRCL calculation 33 ml/min; Estimated Glomerular Filt Rate 44
[2021-09-24 07:03] LABS: INR 1.2; Prothrombin Time 14.6 Seconds (11.1-14.7)
[2021-09-24 07:52] LABS: Glucose Point of Care 114 mg/dl (65-105)
[2021-09-24 08:00] VITALS: PULSE 58; RESP 16; O2SAT 98
[2021-09-24] MEDS: CYANOCOBALAMIN 1,000 MCG TABLET 1000 MCG PO (08:28)
[2021-09-24] MEDS: allopurinoL 100 MG TABLET PO (08:28)
[2021-09-24] MEDS: METOPROLOL SUCCINATE EXT REL 25 MG TABCR PO (08:28)
[2021-09-24] MEDS: guaiFENesin 600 MG/DEXTROMETHORPHAN 30 MG SR TAB 12 HR 1 TAB PO ×2 (08:28→21:10)
[2021-09-24] MEDS: GALANTAMINE HYDROBROMIDE 8 MG TABLET 16 MG PO ×2 (08:28→17:59)
[2021-09-24] MEDS: ASPIRIN 81 MG CHEWABLE TABLET PO (08:28)
[2021-09-24] MEDS: TAMSULOSIN HCL 0.4 MG CAPSULE PO (08:29)
[2021-09-24] MEDS: MEMANTINE 10 MG TABLET PO ×2 (08:29→18:00)
[2021-09-24] MEDS: MIRABEGRON 50 MG ER TABLET PO (08:29)
[2021-09-24] MEDS: DEXAMETHASONE 2 MG TABLET 6 MG PO (08:29)
[2021-09-24] MEDS: ATORVASTATIN 20 MG TABLET PO (08:29)
[2021-09-24] MEDS: ENOXAPARIN 40 MG/0.4 ML SYRINGE SUB-Q (08:29)
[2021-09-24] MEDS: FLUTICASONE PROPIONATE 0.05% NA SPR 16 GM BTL (*BKC) 1 SPRAY NASAL (08:30)
[2021-09-24 11:48] LABS: Glucose Point of Care 147 mg/dl (65-105)
[2021-09-24 12:00] VITALS: BP 148/64; PULSE 56; RESP 17; TEMP 36.1; O2SAT 97
[2021-09-24 16:00] VITALS: BP 136/60; PULSE 58; RESP 17; TEMP 36.1; O2SAT 98
[2021-09-24 16:12] LABS: Glucose Point of Care 182 mg/dl (65-105)
[2021-09-24 20:00] VITALS: BP 143/55; PULSE 63; RESP 18; TEMP 36.3; O2SAT 100
[2021-09-24] MEDS: CITALOPRAM HYDROBROMIDE 10 MG TABLET PO (21:10)
[2021-09-24] MEDS: LORATADINE 5 MG TABLET PO (21:10)
[2021-09-25] VITALS: BP 158/61; PULSE 72; RESP 18; TEMP 36.1; O2SAT 96
--- NOTE | 2021-09-28 07:27 | PM.DS ---
DS: Admitting Diagnosis Discharge Date 09/24/21 Admitting Diagnosis Generalized weakness DS: Discharge Diagnosis Discharge Diagnosis (1) COVID: Code(s): U07.1 - COVID-19 Status: Acute Assessment and Plan: Doing well on room air, will be stable for discharge to rehab tomorrow to complete 10 days total of Decadron and 4 doses of remdesivir, no need for 5 as patient has been on room air for the last few days (2) Urinary tract infection: Code(s): N39.0 - Urinary tract infection, site not specified Status: Acute Assessment and Plan: Urine culture showed pansensitive Citrobacter, continue Rocephin, will switch to cefdinir at discharge to complete 7 days total of antibiotics (3) HTN (hypertension) with goal to be determined: Code(s): I10 - Essential (primary) hypertension Status: Acute Assessment and Plan: Hold nephrotoxic agents, stable (4) DM2 (diabetes mellitus, type 2): Code(s): E11.9 - Type 2 diabetes mellitus without complications Status: Acute Assessment and Plan: Accu-Cheks plus sliding scale insulin, stable (5) Acute kidney injury: Code(s): N17.9 - Acute kidney failure, unspecified Status: Acute Assessment and Plan: creatinine appears stable at 1.6 (6) Gout: Code(s): M10.9 - Gout, unspecified Status: Acute Assessment and Plan: continue allopurinol (7) Hyperlipidemia: Code(s): E78.5 - Hyperlipidemia, unspecified Status: Acute Assessment and Plan: will hold statin for a few weeks after COVID (8) BPH (benign prostatic hyperplasia): Code(s): N40.0 - Benign prostatic hyperplasia without lower urinary tract symptoms Status: Acute Assessment and Plan: stable on Flomax (9) Hypothyroidism: Code(s): E03.9 - Hypothyroidism, unspecified Status: Acute Assessment and Plan: continue levothyroxine, check TSH as an outpatient (10) Dementia: Code(s): F03.90 - Unspecified dementia without behavioral disturbance Status: Acute Assessment and Plan: pleasantly confused, at baseline mentation, continue Namenda DS: Summary Hospital Course Hospital Course: 86-year-old male past medical history significant for Alzheimer's dementia is presenting with generalized weakness and confusion. The patient's daughter brought the patient in because he seemed more confused than usual and his is also demented and daughter thought patient needed placement at a nursing facility. Patient also had some wheezing and was noted to be COVID positive with possible pneumonia and had an abnormal urinalysis concerning for UTI. He was found to be hypoxic and was started on 2 L nasal cannula with oxygen. He was given Rocephin and azithromycin as well as albuterol nebulizer treatments in the ER. He was started on dexamethasone as well as remdesivir. It was thought that the pneumonia secondary to COVID and so antibiotics were discontinued. Patient was weaned to room air. Urine culture showed Citrobacter and patient was placed on cefdinir for 7 day course of antibiotics. He was discharged to a rehab facility to complete his Decadron 10 day course after completing 4 doses of remdesivir. Time Spent with Patient Time attestation: Total time spent providing and/or coordinating discharge services: Exam Narrative: General: No acute distress, alert and oriented per baseline HEENT: Atraumatic, normocephalic, mucous membranes moist CV: Regular rate and rhythm, S1, S2 Lungs: Clear to auscultation bilaterally, no rales or crackles noted, no wheezes, good air entry Abdomen: Soft, nontender, nondistended Extremities: Normal to inspection Skin: No rashes noted, no lesions or wounds seen Psych: Euthymic, normal affect DS: Data Data Completed and Pending Labs on day of discharge: Labs from last 24 hours 09/20/21 15:58 Urine Color Yellow Urin
== END 2021-09-24 23:50 | disposition swing bed (61) | DRG 177 ==
LOC: ANHED 19:06 → ANH3MEDSUR 19:59
PROVIDERS: Chiropractor; Emergency Medicine; Nurse Practitioner; Physician Assistant; Admitting Provider Internal Medicine; Emergency Provider Emergency Medicine; PCP Internal Medicine; Visit Provider Student in an Organized Health Care Education/Training Program
DX: U07.1 COVID-19 (principal); J12.82 Pneumonia due to coronavirus disease 2019; N39.0 Urinary tract infection, site not specified; B96.89 Other specified bacterial agents as the cause of diseases classified elsewhere; R09.02 Hypoxemia; M10.9 Gout, unspecified; E78.5 Hyperlipidemia, unspecified; N40.0 Benign prostatic hyperplasia without lower urinary tract symptoms; E03.9 Hypothyroidism, unspecified; I10 Essential (primary) hypertension; E11.9 Type 2 diabetes mellitus without complications; G30.9 Alzheimer's disease, unspecified; F02.80 Dementia in other diseases classified elsewhere, unspecified severity, without behavioral disturbance, psychotic disturbance, mood disturbance, and anxiety; I25.10 Atherosclerotic heart disease of native coronary artery without angina pectoris; Z85.828 Personal history of other malignant neoplasm of skin; Z90.49 Acquired absence of other specified parts of digestive tract; Z95.1 Presence of aortocoronary bypass graft; Z79.82 Long term (current) use of aspirin
CPT/HCPCS: 36415; 51701; 70450; 71046; 80048; 80053; 80307; 81001; 82565; 82728; 82948; 83605; 83615; 84460; 85025; 85027; 85610; 85730; 86140; 87077; 87086; 87088; 87186; 92523; 93005; 94640; 97110; 97116; 97161; 97166; 97530; 97535; 99285; A9270; C9803; J0248; J0456; J0696; J1650; J7030; J8540; U0003; U0005

== ENCOUNTER 2021-09-25 01:33 | Inpatient (IN) | payer MEDICARE, OTHER, SELFPAY ==
--- NOTE | ~2021-09-25 | XR_ITS ---
EXAMINATION: XR chest 1V portable DATE: 09/28/2021 12:56 INDICATION: Infection. COVID-19 pneumonia. TECHNIQUE: A single frontal view of the chest was obtained. COMPARISON: Chest 2 views 09/20/2021 FINDINGS: There are mild airspace opacities in left lower lung zone. No pleural effusion or pneumotho rax. The heart size is normal. 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 IMPRESSION: 1. Improved mild airspace opacities in left lower lung zone, consistent with atelectasis versus pneum onia. Reviewed, dictated and finalized at location A. IMPRESSION: 1. Improved mild airspace opacities in left lower lung zone, consistent with at electasis versus pneumonia.
--- NOTE | 2021-09-25 01:40 | ADMGEN ---
This patient, Jennifer Conley, was admitted to 2nd Floor Room 207-2 via ambulance from [facility]. Family is not present. Isolation initiated for Covid upon arrival. Patient oriented to hospital policies and general routines including ID bracelet, bed and alarms, visiting hours, pain management, procedures, bathroom and other care routines, personal items, smoking policy, room service/diet, and visiting hours. Patient has limited comprehension and family is not present. Call light is left in patient bed and bed alarm is activated for safety. Information on how to activate the Rapid Response Team has been discussed. Unable to comprehend. Patient/Family are encouraged to report perceived risks to care and to ask questions if they do not understand what they are told or what they should do.
[2021-09-25 01:59] VITALS: PULSE 63; RESP 18; O2SAT 96
[2021-09-25 03:13] VITALS: PULSE 63; RESP 18; O2SAT 96
--- NOTE | 2021-09-25 03:30 | PC.NURSE ---
Bed alarm alarming: Patient climbing out of bed, voided in urinal and incontinent of urine. Assisted back to bed and bed alarm re-engaged.
[2021-09-25 08:00] VITALS: BP 147/50; PULSE 75; RESP 16; TEMP 36.6; O2SAT 97
[2021-09-25] MEDS: GALANTAMINE HYDROBROMIDE 4 MG TABLET 16 MG PO ×2 (09:06→16:40)
[2021-09-25] MEDS: guaiFENesin/DEXTROMETHORPHAN 5 ML UDC 30 ML PO ×2 (09:07→16:37)
[2021-09-25] MEDS: MEMANTINE 5 MG TABLET 10 MG PO ×2 (09:08→16:41)
[2021-09-25] MEDS: ATORVASTATIN 10 MG TABLET 20 MG PO (09:08)
[2021-09-25] MEDS: TAMSULOSIN HCL 0.4 MG CAPSULE PO (09:08)
[2021-09-25] MEDS: ASPIRIN 81 MG CHEWABLE TABLET PO (09:08)
[2021-09-25] MEDS: CELECOXIB 100 MG CAPSULE 200 MG PO (09:09)
[2021-09-25] MEDS: CEFDINIR 300 MG CAPSULE PO ×2 (09:09→20:11)
[2021-09-25] MEDS: allopurinoL 100 MG TABLET PO (09:09)
[2021-09-25] MEDS: CYANOCOBALAMIN 1,000 MCG TABLET 1000 MCG PO (09:09)
[2021-09-25] MEDS: LORATADINE 10 MG TABLET PO (09:09)
[2021-09-25] MEDS: LEVOTHYROXINE SODIUM 50 MCG TABLET PO (09:09)
[2021-09-25] MEDS: FLUTICASONE PROPIONATE 0.05% NA SPR 16 GM BTL (*BKC) 1 SPRAY NASAL (09:10)
[2021-09-25 09:12] VITALS: PULSE 75
[2021-09-25] MEDS: METOPROLOL SUCCINATE EXT REL 25 MG TABCR PO (09:12)
--- NOTE | 2021-09-25 13:47 | PM.IMHP ---
H&P: HPI History of Present Illness Date/Time: 09/25/21 13:47 Chief Complaint: Covid, dementia , REhab Narrative: ?this is an 86-year-old male patient with a history of Alzheimer's. Patient was brought to [facility] as a swing patient as he still needing to be isolated due to COVID-19. At this time patient is not requiring any oxygen and is really asymptomatic except for he is really weak and is in need of physical therapy. While at [place] patient received antibiotics, breathing treatments, IV fluids in the emergency room for possible pneumonia and a UTI. Patient has not required oxygen in more than 2 days and wheezing has subsided and patient remains on oral steroids and antibiotics at this time patient will attempt to swing and then will transition to half-way when he is discharged from our facility. Patient is alert and oriented x1-2 he does not understand why he is here he is able to tell me his name and his birthdate unable to tell me the date or why he is here. Patient is unable to ambulate or get out of the bed without a sit to stand. Review of Systems Review of Systems: COVID ,Dementia , weakness All systems reviewed & are unremarkable except as noted in HPI and below PMFSH Past Medical History Medical History (Updated 09/25/21 @ 14:11 by Brandon Nuno NP) Cervical compression fracture Family history of early CAD Lumbar compression fracture Prostate cancer Rib fracture Social History Social History Smoking status: Unknown if ever smoked Alcohol intake: unknown Substance use: unknown Spiritual care concerns: No Comments At time as signature, I have reviewed and agree with nursing past medical, social, surgical and family history. Please see nursing chart for further information. There is no relevant family history pertinent to the presenting complaint. Meds Home Medications and Allergies Home Medications Medication Instructions Recorded Confirmed Type Acetaminophen Extra Strength 500 tablet PO Q6-8H PRN Pain 09/25/21 09/25/21 History Mucinex DM 1 tablet PO BID 09/25/21 09/25/21 History allopurinol 100 mg tablet 100 mg PO DAILY 09/25/21 09/25/21 History aspirin 81 mg tablet 81 mg PO DAILY 09/25/21 09/25/21 History atorvastatin 20 mg tablet 20 mg PO 1XD 09/25/21 09/25/21 History cefdinir 300 mg capsule 300 mg PO BID 09/25/21 09/25/21 History celecoxib 200 mg capsule 200 mg PO DAILY 09/25/21 09/25/21 History cetirizine 10 mg tablet 5 mg PO DAILY 09/25/21 09/25/21 History citalopram 10 mg tablet 10 mg PO QHS 09/25/21 09/25/21 History cyanocobalamin (vitamin B-12) 1,000 mcg PO DAILY 09/25/21 09/25/21 History dexamethasone 2 mg tablet 6 mg PO DAILY 09/25/21 09/25/21 History fluticasone propionate 50 1 spray intranasal DAILY 09/25/21 09/25/21 History mcg/actuation nasal spray,suspension galantamine 4 mg tablet 16 mg PO BID 09/25/21 09/25/21 History levothyroxine 50 mcg tablet 50 mcg PO DAILY 09/25/21 09/25/21 History (Synthroid) memantine 10 mg tablet 10 mg PO BID 09/25/21 09/25/21 History metoprolol succinate 25 mg 25 mg PO 1XD 09/25/21 09/25/21 History tablet,extended release 24 hr mirabegron 50 mg tablet,extended 50 mg PO DAILY 09/25/21 09/25/21 History release 24 hr (Myrbetriq) nitroglycerin 0.4 mg sublingual 0.4 mg sublingual Q5MIN PRN Chest 09/25/21 09/25/21 History tablet Pain prednisone 20 mg tablet 20 mg PO DAILY 09/25/21 09/25/21 History tamsulosin 0.4 mg capsule 0.4 mg PO DAILY 09/25/21 09/25/21 History Allergies Allergy/AdvReac Type Severity Reaction Status Date / Time No Known Allergies Allergy Verified 09/25/21 03:13 Vital Signs Vital Signs - 24 hr 09/25/21 01:59 09/25/21 08:00 09/25/21 09:12 Temperature 97.8 F Pulse Rate 63 75 75 Respiratory Rate 18 16 Blood Pressure 147/50 H Pulse Oximetry 96 97 Oxygen Delivery Room Air Room Air 09/25/21 03:13 Temperature Pulse Rate 6
[2021-09-25] MEDS: DEXAMETHASONE 2 MG TABLET 6 MG PO (14:00)
[2021-09-25 16:00] VITALS: BP 150/79; PULSE 69; RESP 14; TEMP 36.5; O2SAT 98
[2021-09-25] MEDS: MIRABEGRON 25 MG ER TABLET 50 MG PO (16:39)
[2021-09-25 20:00] VITALS: PULSE 69; RESP 14; O2SAT 98
[2021-09-25] MEDS: CITALOPRAM HYDROBROMIDE 10 MG TABLET PO (20:11)
[2021-09-25] MEDS: ACETAMINOPHEN 500 MG TABLET PO (20:11)
[2021-09-26] VITALS: BP 178/76; PULSE 71; RESP 18; TEMP 36.3; O2SAT 95
[2021-09-26] MEDS: LEVOTHYROXINE SODIUM 50 MCG TABLET PO (05:42)
[2021-09-26 08:00] VITALS: BP 150/50; PULSE 79; RESP 14; TEMP 36.5; O2SAT 99
[2021-09-26] MEDS: guaiFENesin/DEXTROMETHORPHAN 5 ML UDC 30 ML PO ×2 (09:09→15:59)
[2021-09-26] MEDS: MIRABEGRON 25 MG ER TABLET 50 MG PO (09:11)
[2021-09-26] MEDS: ATORVASTATIN 10 MG TABLET 20 MG PO (09:12)
[2021-09-26] MEDS: allopurinoL 100 MG TABLET PO (09:12)
[2021-09-26] MEDS: ASPIRIN 81 MG CHEWABLE TABLET PO (09:12)
[2021-09-26] MEDS: CEFDINIR 300 MG CAPSULE PO ×2 (09:13→20:21)
[2021-09-26] MEDS: DEXAMETHASONE 2 MG TABLET 6 MG PO (09:13)
[2021-09-26] MEDS: MEMANTINE 5 MG TABLET 10 MG PO ×2 (09:13→15:59)
[2021-09-26 09:14] VITALS: PULSE 78
[2021-09-26] MEDS: METOPROLOL SUCCINATE EXT REL 25 MG TABCR PO (09:14)
[2021-09-26] MEDS: TAMSULOSIN HCL 0.4 MG CAPSULE PO (09:14)
[2021-09-26] MEDS: CELECOXIB 100 MG CAPSULE 200 MG PO (09:15)
[2021-09-26] MEDS: CYANOCOBALAMIN 1,000 MCG TABLET 1000 MCG PO (09:16)
[2021-09-26] MEDS: FLUTICASONE PROPIONATE 0.05% NA SPR 16 GM BTL (*BKC) 1 SPRAY NASAL (09:16)
[2021-09-26] MEDS: LORATADINE 10 MG TABLET PO (09:16)
[2021-09-26] MEDS: GALANTAMINE HYDROBROMIDE 4 MG TABLET 16 MG PO ×2 (09:19→15:58)
--- NOTE | 2021-09-26 10:14 | PC.NURSE ---
found patient's wedding ring on floor next to his bed. Also found on breakfast tray later. Notified . Ring in container with patient's name locjked in med room
--- NOTE | 2021-09-26 15:17 | PC.NURSE ---
Patient bed alarm sounding. Found patient in bathroom urinating. Walked without walker. Assisted to bedside chair.
[2021-09-26 16:00] VITALS: BP 123/57; PULSE 79; RESP 14; TEMP 36.5; O2SAT 97
[2021-09-26 20:00] VITALS: PULSE 79; RESP 14; O2SAT 97
[2021-09-26] MEDS: CITALOPRAM HYDROBROMIDE 10 MG TABLET PO (20:21)
[2021-09-26] MEDS: ACETAMINOPHEN 500 MG TABLET PO (20:21)
[2021-09-26 23:58] VITALS: BP 142/56; PULSE 66; RESP 18; TEMP 36.8; O2SAT 95
[2021-09-27] MEDS: LEVOTHYROXINE SODIUM 50 MCG TABLET PO (05:34)
[2021-09-27 08:00] VITALS: BP 175/75; PULSE 63; RESP 14; TEMP 36.4; O2SAT 94
[2021-09-27] MEDS: guaiFENesin/DEXTROMETHORPHAN 5 ML UDC 30 ML PO ×2 (09:31→16:37)
[2021-09-27] MEDS: GALANTAMINE HYDROBROMIDE 4 MG TABLET 16 MG PO ×2 (09:33→16:36)
[2021-09-27] MEDS: ASPIRIN 81 MG CHEWABLE TABLET PO (09:34)
[2021-09-27] MEDS: CEFDINIR 300 MG CAPSULE PO ×2 (09:35→21:51)
[2021-09-27] MEDS: LORATADINE 10 MG TABLET PO (09:35)
[2021-09-27 09:36] VITALS: PULSE 65
[2021-09-27] MEDS: METOPROLOL SUCCINATE EXT REL 25 MG TABCR PO (09:36)
[2021-09-27] MEDS: DEXAMETHASONE 2 MG TABLET 6 MG PO (09:37)
[2021-09-27] MEDS: MEMANTINE 5 MG TABLET 10 MG PO ×2 (09:37→16:36)
[2021-09-27] MEDS: FLUTICASONE PROPIONATE 0.05% NA SPR 16 GM BTL (*BKC) 1 SPRAY NASAL (09:40)
[2021-09-27] MEDS: CYANOCOBALAMIN 1,000 MCG TABLET 1000 MCG PO (09:40)
[2021-09-27] MEDS: allopurinoL 100 MG TABLET PO (09:40)
[2021-09-27] MEDS: ATORVASTATIN 10 MG TABLET 20 MG PO (09:40)
[2021-09-27] MEDS: CELECOXIB 100 MG CAPSULE 200 MG PO (09:40)
[2021-09-27] MEDS: MIRABEGRON 25 MG ER TABLET 50 MG PO (09:41)
[2021-09-27] MEDS: TAMSULOSIN HCL 0.4 MG CAPSULE PO (09:41)
[2021-09-27 15:40] VITALS: BP 127/84; PULSE 74; RESP 16; TEMP 36.1; O2SAT 97
[2021-09-27] MEDS: ACETAMINOPHEN 500 MG TABLET PO (21:51)
[2021-09-27] MEDS: CITALOPRAM HYDROBROMIDE 10 MG TABLET PO (21:52)
[2021-09-28] VITALS: BP 175/74; PULSE 62; RESP 12; TEMP 36.2; O2SAT 96
[2021-09-28 05:25] LABS: Hematocrit 37.7 % (37.0-46.0); Hemoglobin 12.4 g/dL (12.4-15.3); Mean Corpuscular HGB Conc 32.9 g/dL (32.0-36.0); Mean Corpuscular Hemoglobin 30.3 pg (27.0-31.0); Mean Corpuscular Volume 92.2 fL (78.0-102.0); Mean Platelet Volume 10.7 fl (8.7-11.0); Platelet Count Result 321 K/mm3 (150-420); Red Blood Count 4.09 M/mm3 (4.70-6.10); Red Cell Distribution Width 13.2 % (11.6-14.4); White Blood Count 14.1 K/mm3 (4.8-10.8)
[2021-09-28 05:41] LABS: Anion Gap 11 mmol/L (8-16); Blood Urea Nitrogen 54 mg/dL (7-18); Calcium 9.4 mg/dL (8.5-10.1); Carbon Dioxide 23 mmol/L (21-32); Chloride 106 mmol/L (98-108); Estimated CRCL calculation 28 ml/min; Estimated Glomerular Filt Rate 36; Glucose 101 mg/dL (70-99); Osmolality Calculated 304 mOsm/kg (285-295); Potassium 4.5 mmol/L (3.5-5.1); Sodium 140 mmol/L (136-145)
[2021-09-28] MEDS: LEVOTHYROXINE SODIUM 50 MCG TABLET PO (06:31)
[2021-09-28 07:47] VITALS: BP 183/72; PULSE 64; RESP 14; TEMP 36.2; O2SAT 95
--- NOTE | 2021-09-28 08:45 | P.PNCROSS_ITS ---
Event Note Event Note Event Note: Patient blood pressure has been elevated for the last few readings blood pressu re 183/72. Started hydralazine as needed with parameters Will also start lisinopril 10 mg daily and closely monitor blood pressure readings.
[2021-09-28] MEDS: TAMSULOSIN HCL 0.4 MG CAPSULE PO (09:00)
[2021-09-28] MEDS: lisinopriL 10 MG TABLET PO (09:00)
[2021-09-28] MEDS: guaiFENesin/DEXTROMETHORPHAN 5 ML UDC 30 ML PO ×2 (09:11→16:34)
[2021-09-28] MEDS: CELECOXIB 100 MG CAPSULE 200 MG PO (09:12)
[2021-09-28] MEDS: hydrALAZINE 5 MG TABLET PO ×2 (09:12→13:00)
[2021-09-28] MEDS: GALANTAMINE HYDROBROMIDE 4 MG TABLET 16 MG PO ×2 (09:12→16:35)
[2021-09-28] MEDS: MIRABEGRON 25 MG ER TABLET 50 MG PO (09:12)
[2021-09-28] MEDS: DEXAMETHASONE 2 MG TABLET 6 MG PO (09:13)
[2021-09-28] MEDS: MEMANTINE 5 MG TABLET 10 MG PO ×2 (09:13→16:37)
[2021-09-28] MEDS: ATORVASTATIN 10 MG TABLET 20 MG PO (09:14)
[2021-09-28] MEDS: ASPIRIN 81 MG CHEWABLE TABLET PO (09:14)
[2021-09-28] MEDS: CEFDINIR 300 MG CAPSULE PO ×2 (09:14→21:39)
[2021-09-28] MEDS: allopurinoL 100 MG TABLET PO (09:14)
[2021-09-28] MEDS: LORATADINE 10 MG TABLET PO (09:14)
[2021-09-28 09:15] VITALS: PULSE 64
[2021-09-28] MEDS: FLUTICASONE PROPIONATE 0.05% NA SPR 16 GM BTL (*BKC) 1 SPRAY NASAL (09:15)
[2021-09-28] MEDS: METOPROLOL SUCCINATE EXT REL 25 MG TABCR PO (09:15)
[2021-09-28] MEDS: CYANOCOBALAMIN 1,000 MCG TABLET 1000 MCG PO (09:15)
--- NOTE | 2021-09-28 11:48 | PM.EVENT ---
Event Note Event Note Event Note: Patient is requiring a hospital bed due to worsening Alzheimer's. This patient is a high fall risk the use of a hospital bed with decreased patient is chances of falling.
[2021-09-28 15:45] VITALS: BP 143/67; PULSE 62; RESP 16; TEMP 36.2; O2SAT 98
[2021-09-28 17:32] LABS: Appearance Urine Clear (Clear); Bilirubin Urine Negative (Negative); Color Urine Yellow (Yellow); Glucose Urine UA Negative (Negative); Ketones Urine Negative (Negative); Leukocyte Esterase Ur Negative LEU/UL (Negative); Nitrate Urine Negative (Negative); Protein Urine Trace (Negative); Specific Grav Ur 1.025 (1.010-1.020); Urobilinogen Urine 0.2 mg/dL (0.2-1.0); pH Urine 5.5 (5.0-8.0)
[2021-09-28 17:36] LABS: Add Urine Microscopic? YES; Bacteria Urine Trace /hpf; Blood Urine Trace-Intact (Negative); RBC Urine 0-2 /hpf (0-2); WBC Urine 0-3 /hpf (0-3)
[2021-09-28] MEDS: CITALOPRAM HYDROBROMIDE 10 MG TABLET PO (21:39)
[2021-09-29] VITALS: BP 119/76; PULSE 68; RESP 18; TEMP 36.4; O2SAT 95
[2021-09-29] MEDS: LEVOTHYROXINE SODIUM 50 MCG TABLET PO (06:12)
[2021-09-29 08:00] VITALS: BP 177/74; PULSE 54; RESP 14; TEMP 36.3; O2SAT 97
[2021-09-29] MEDS: guaiFENesin/DEXTROMETHORPHAN 5 ML UDC 30 ML PO ×2 (09:15→17:20)
[2021-09-29] MEDS: MEMANTINE 5 MG TABLET 10 MG PO ×2 (09:19→17:21)
[2021-09-29] MEDS: lisinopriL 10 MG TABLET PO (09:19)
[2021-09-29] MEDS: CYANOCOBALAMIN 1,000 MCG TABLET 1000 MCG PO (09:19)
[2021-09-29 09:20] VITALS: PULSE 68
[2021-09-29] MEDS: METOPROLOL SUCCINATE EXT REL 25 MG TABCR PO (09:20)
[2021-09-29] MEDS: CELECOXIB 100 MG CAPSULE 200 MG PO (09:20)
[2021-09-29] MEDS: TAMSULOSIN HCL 0.4 MG CAPSULE PO (09:20)
[2021-09-29] MEDS: DEXAMETHASONE 2 MG TABLET 6 MG PO (09:20)
[2021-09-29] MEDS: ATORVASTATIN 10 MG TABLET 20 MG PO (09:21)
[2021-09-29] MEDS: GALANTAMINE HYDROBROMIDE 4 MG TABLET 16 MG PO ×2 (09:21→17:20)
[2021-09-29] MEDS: MIRABEGRON 25 MG ER TABLET 50 MG PO (09:21)
[2021-09-29] MEDS: allopurinoL 100 MG TABLET PO (09:22)
[2021-09-29] MEDS: LORATADINE 10 MG TABLET PO (09:41)
[2021-09-29] MEDS: CEFDINIR 300 MG CAPSULE PO ×2 (09:41→21:06)
[2021-09-29] MEDS: ASPIRIN 81 MG CHEWABLE TABLET PO (09:41)
[2021-09-29] MEDS: FLUTICASONE PROPIONATE 0.05% NA SPR 16 GM BTL (*BKC) 1 SPRAY NASAL (09:41)
--- NOTE | 2021-09-29 11:48 | PM.EVENT ---
Event Note Event Note Event Note: Called to patient's primary care physician to speak with her concerning to determine whether or not patient will be admitted to a memory care unit awaiting callback
[2021-09-29 16:00] VITALS: BP 105/52; PULSE 69; RESP 16; TEMP 36.2; O2SAT 96
[2021-09-29] MEDS: CITALOPRAM HYDROBROMIDE 10 MG TABLET PO (21:06)
[2021-09-29 23:44] VITALS: BP 124/63; PULSE 56; RESP 18; TEMP 36.4; O2SAT 97
[2021-09-30] MEDS: LEVOTHYROXINE SODIUM 50 MCG TABLET PO (05:29)
[2021-09-30 08:00] VITALS: BP 127/53; PULSE 65; RESP 16; TEMP 36.3; O2SAT 97
--- NOTE | 2021-09-30 08:25 | PM.DS ---
DS: Admitting Diagnosis Discharge Date 09/30/2021 Admitting Diagnosis Rehab status post COVID DS: Discharge Diagnosis Discharge Diagnosis (1) COVID-19: Code(s): U07.1 - COVID-19 Status: Acute Assessment and Plan: Treatment completed patient is stable No oxygen needed at this time No longer on isolation (2) Weakness: Code(s): R53.1 - Weakness Status: Acute Assessment and Plan: Will discharge with PT/OT / speech therapy On discharge patient able to ambulate 70 feet x 1 in room with contact-guard assist using a wheeled walker (3) Dementia: Code(s): F03.90 - Unspecified dementia without behavioral disturbance Status: Acute Assessment and Plan: Very forgetful alert to self only Patient will be discharged to memory care Patient is requiring a hospital bed due to his advanced Alzheimer's/dementia patient will require frequent changes in bed position DS: Summary Hospital Course Reason for hospitalization: Rehab Hospital Course: this is an 86-year-old male patient with a history of Alzheimer's.? Patient was brought to [facility] as a swing patient as he still needing to be isolated due to COVID-19.? At this time patient is not requiring any oxygen and is really asymptomatic except for he is really weak and is in need of physical therapy.? While at [place] patient received antibiotics, breathing treatments, IV fluids in the emergency room for possible pneumonia and a UTI. This day of discharge patient will discharge to a memory care unit he was evaluated by myself in a memory care unit would be a good choice for this patient. I did talk to patient's PCP so that the paperwork can be filled out for the memory care unit. Primary care physician ordered a chest x-ray and UA to rule out infection no infection or. Patient will discharge to a memory care unit he is only alert to self and is a high fall risk due to his impulsiveness. He does not appear to be in any distress. Time Spent with Patient Time attestation: Total time spent providing and/or coordinating discharge services: Exam Narrative: GENERAL:Well-appearing, well-nourished, and in no acute distress. HEAD:Normocephalic, atraumatic. EYES: PERRLA and EOMI. ENT: Nares clear, no rhinorrhea or epistaxis. Mucous membranes moist. NECK: Supple. CHEST: Clear to auscultation. No respiratory distress. HEART: Regular rate and rhythm. No murmur heard. Normal peripheral pulses. ABDOMEN: Soft, nontender, nondistended, normal active bowel sounds. EXTREMITIES: Normal range of motion. No edema. SKIN: Warm, dry, no rash. NEURO: No focal deficits. Alert and oriented 1-2. Discharge Plan Discharge Attending physician on discharge: Efraín Martinez Discharging Clinician: Maria Elena Dias Anticipated Discharge Date/Time: 09/30/21 08:09 Patient Disposition: NH Fpc/Asst Living Activity: as tolerated Diet: heart healthy Discharge Instructions: Follow up with primary care physician within 1-2 weeks Notify your physician of any sign and symptoms of infection Take medication as prescribed Call your provider or seek immediate medical attention if you experience any difficulty breathing, chest pain, heaviness or tightness, chills or fever over 101 degree, persistent nausea and vomiting Per Care Coordination: Pt discharging to [facility]. RN to call report to [phone] and fax discharge orders/instructions/meds to [phone]. Patient Instructions: Antibiotic Form, Lisinopril (By mouth), Fall Prevention for Older Adults (DC), Weakness (DC), COVID-19 (Coronavirus Disease 2019) (DC) Stand Alone Forms: General Discharge Information, Fpc Discharge Follow-up/Referrals: Markell,MD Gricelda [Primary Care Provider] - Call for Appointment Discharge Medications: New lisinopril 10 mg Tablet 10 mg PO DAILY Qty: 30 0RF Continued celecoxib 200 mg capsule 200 mg PO DAILY ator
[2021-09-30] MEDS: guaiFENesin/DEXTROMETHORPHAN 5 ML UDC 30 ML PO (08:33)
[2021-09-30] MEDS: MEMANTINE 5 MG TABLET 10 MG PO (08:36)
[2021-09-30] MEDS: ASPIRIN 81 MG CHEWABLE TABLET PO (08:37)
[2021-09-30] MEDS: CYANOCOBALAMIN 1,000 MCG TABLET 1000 MCG PO (08:37)
[2021-09-30] MEDS: predniSONE 20 MG TABLET PO (08:37)
[2021-09-30] MEDS: TAMSULOSIN HCL 0.4 MG CAPSULE PO (08:37)
[2021-09-30] MEDS: CEFDINIR 300 MG CAPSULE PO (08:38)
[2021-09-30] MEDS: ATORVASTATIN 10 MG TABLET 20 MG PO (08:38)
[2021-09-30] MEDS: CELECOXIB 100 MG CAPSULE 200 MG PO (08:38)
[2021-09-30] MEDS: allopurinoL 100 MG TABLET PO (08:38)
[2021-09-30] MEDS: LORATADINE 10 MG TABLET PO (08:39)
[2021-09-30] MEDS: lisinopriL 10 MG TABLET PO (08:39)
[2021-09-30 08:40] VITALS: PULSE 66
[2021-09-30] MEDS: METOPROLOL SUCCINATE EXT REL 25 MG TABCR PO (08:40)
[2021-09-30] MEDS: GALANTAMINE HYDROBROMIDE 4 MG TABLET 16 MG PO (08:41)
[2021-09-30] MEDS: FLUTICASONE PROPIONATE 0.05% NA SPR 16 GM BTL (*BKC) 1 SPRAY NASAL (08:41)
[2021-09-30] MEDS: MIRABEGRON 25 MG ER TABLET 50 MG PO (08:41)
--- NOTE | 2021-09-30 10:23 | PC.NURSE ---
Called report to Michelle at [facility].
--- NOTE | 2021-09-30 11:40 | PC.NURSE ---
Patient discharged from unit at 11:40 , in w/c accompanied by news writer and his daughter. Discharge instructions give to patient and daughter. Daughter voiced understanding. Report called to, and discharge instructions sent to Michelle at [facility]. Personal belongings sent home with patient and family. Patient left grounds via private vehicle.
[2021-10-14 13:17] LABS: Glucose Point of Care 91 mg/dl (65-105)
== END 2021-09-30 11:40 | DRG 179 ==
PROVIDERS: Nurse Practitioner; Admitting Provider Internal Medicine; PCP Internal Medicine; Visit Provider Internal Medicine
DX: U07.1 COVID-19 (principal); R53.1 Weakness; C61 Malignant neoplasm of prostate; G30.9 Alzheimer's disease, unspecified; F02.80 Dementia in other diseases classified elsewhere, unspecified severity, without behavioral disturbance, psychotic disturbance, mood disturbance, and anxiety
CPT/HCPCS: 36415; 71045; 80048; 81001; 82948; 85027; 97110; 97161; 97165; 97530; 97535; A9270; J7512; J8540

== ENCOUNTER 2021-10-09 09:44 | Inpatient (IN) | payer MEDICARE, OTHER, SELFPAY ==
[2021-10-09] VITALS (12 sets, daily range): BP systolic 101–150; BP diastolic 40–91; PULSE 56–87; RESP 12–18; TEMP 36.4–36.9; O2SAT 95–100
--- NOTE | ~2021-10-09 | XR_ITS ---
EXAMINATION: XR hip RT 2V w AP pelvis DATE: 10/09/2021 10:51 INDICATION: Right hip pain. Fall. TECHNIQUE: An anteroposterior view of the pelvis on 2 radiographs and 2 views of right hip were obtai johnny. COMPARISON: Pelvis and right hip radiographs 09/13/2021 FINDINGS: There is a basicervical fracture of right femoral neck in near-anatomic alignment. There is mild osteoarthritis of the hips. There is mild lumbar spondylosis. Surgical clips overlie right pelv is. IMPRESSION: 1. Basicervical fracture of right femoral neck. 2. Mild osteoarthritis of the hips. Reviewed, dictated and finalized at location A.
--- NOTE | ~2021-10-09 | CT_ITS ---
EXAMINATION: CT cervical spine wo con DATE: 10/09/2021 11:08 INDICATION: Head injury. TECHNIQUE: Computed tomography (CT) of the cervical spine was performed without intravenous contrast. Automated exposure control and iterative reconstruction technique were employed. The dose-length pro duct was 450.56 mGy-cm. COMPARISON: None FINDINGS: There is mild emphysema. Vertebral body heights and intervertebral disc heights are normal. The following disc levels are specifically discussed: C2-C3: There is mild right uncovertebral joint osteoarthritis. There is mild bilateral facet joint os teoarthritis. There is no neural foraminal stenosis. There is no central canal stenosis. C3-C4: There is mild left uncovertebral joint osteoarthritis. There is mild bilateral facet joint ost eoarthritis. There is no neural foraminal stenosis. There is no central canal stenosis. C4-C5: There is no uncovertebral joint osteoarthritis. There is mild bilateral facet joint osteoarthr itis. There is no neural foraminal stenosis. There is no central canal stenosis. C5-C6: There is mild bilateral uncovertebral joint osteoarthritis. There is no facet joint osteoarthr itis. There is no neural foraminal stenosis. There is mild central canal stenosis. C6-C7: There is mild bilateral uncovertebral joint osteoarthritis. There is mild left facet joint ost eoarthritis. There is mild bilateral neural foraminal stenosis. There is mild central canal stenosis. C7-T1: There is no uncovertebral joint osteoarthritis. There is moderate right and mild left facet jeevan int osteoarthritis. There is no neural foraminal stenosis. There is no central canal stenosis. IMPRESSION: 1. No fracture. 2. Mild cervical spondylosis. Reviewed, dictated and finalized at location A.
--- NOTE | ~2021-10-09 | XR_ITS ---
EXAMINATION: XR surgery orthopedic DATE: 10/10/2021 08:47 INDICATION: Right femoral neck fracture. TECHNIQUE: 3 intraoperative fluoroscopic views of right hip were obtained. I was not present. Fluoros copy exposure time was 46 seconds. COMPARISON: Right hip radiographs 10/09/2021 FINDINGS: There is a nondisplaced fracture of right femoral neck. Internal fixation is seen with 3 la g screws. There is mild right hip osteoarthritis. IMPRESSION: 1. Nondisplaced right femoral neck fracture with internal fixation. 2. Mild right hip osteoarthritis. Reviewed, dictated and finalized at location A.
--- NOTE | ~2021-10-09 | CT_ITS ---
EXAMINATION: CT brain wo con DATE: 10/09/2021 11:08 INDICATION: Dementia. Fall. TECHNIQUE: Computed tomography (CT) of the head was performed without intravenous contrast. The mA wa s adjusted according to patient size. Iterative reconstruction technique was employed. The dose-lengt h product was 605.33 mGy-cm. COMPARISON: Head CT 09/20/2021 FINDINGS: There are scattered areas of low attenuation in the cerebral white matter. There is no intr acranial hemorrhage, acute infarction, or abnormal intracranial mass lesion. The ventricles are luisa l in size. There are likely changes of ocular lens replacement surgeries. There is an old blowout fra cture of medial wall of right orbit. There is mild mucosal thickening in the paranasal sinuses. There is an implant in the nose. There is a small left mastoid effusion. IMPRESSION: 1. Stable mild nonspecific cerebral white matter disease, which likely represents chronic small vesse l ischemic disease. Reviewed, dictated and finalized at location A. IMPRESSION: 1. Stable mild nonspecific cerebral white matter disease, which likely represen ts chronic small vessel ischemic disease.
--- NOTE | ~2021-10-09 | XR_ITS ---
EXAMINATION: XR chest 1V DATE: 10/09/2021 10:52 INDICATION: Fall. TECHNIQUE: A single frontal view of the chest was obtained. COMPARISON: Chest single view 09/28/2021 FINDINGS: The lung volumes are small. There are mild airspace opacities in right midlung zone and lef t lower lung zone. No pleural effusion or pneumothorax. The heart size is normal. Median sternotomy w ires and mediastinal surgical clips are seen, likely from prior coronary artery bypass grafting. IMPRESSION: 1. Small lung volumes with mild airspace opacities in right midlung zone and left lower lung zone, co nsistent with atelectasis versus pneumonia. Reviewed, dictated and finalized at location A. IMPRESSION: 1. Small lung volumes with mild airspace opacities in right midlung zone and le ft lower lung zone, consistent with atelectasis versus pneumonia.
--- NOTE | 2021-10-09 09:59 | ED.FALL ---
HPI - Fall General Chief Complaint: Fall Stated Complaint: fall, hip pain Source: patient, family and EMS Mode of arrival: EMS Limitations: no limitations History of Present Illness HPI Narrative: Patient is an 86-year-old male who presents the ED via EMS with report of a fall. Patient resides at [facility]. He has a history of dementia and is A&O x1 at baseline. Per niece at bedside, patient tried to use the restroom by himself today and fell. He has been complaining of pain to his right hip. EMS was called. Unknown if he hit his head or loss consciousness. Patient has no other complaints at this time. Related Data Home Medications Medication Instructions Recorded Confirmed aspirin 81 mg chewable tablet 81 mg PO DAILY 02/16/19 10/09/21 atorvastatin 20 mg tablet 20 mg PO DAILY 02/16/19 10/09/21 metoprolol succinate 25 mg 25 mg PO DAILY 02/16/19 10/09/21 tablet,extended release 24 hr (Toprol XL) acetaminophen 500 mg tablet 500 mg PO Q8H PRN Pain (Scale 09/20/21 10/09/21 (Tylenol Extra Strength) Score 1-3) allopurinol 100 mg tablet 100 mg PO DAILY 09/20/21 10/09/21 celecoxib 200 mg capsule 200 mg PO DAILY 09/20/21 10/09/21 cyanocobalamin (vitamin B-12) 1,000 mcg PO DAILY 09/20/21 10/09/21 1,000 mcg tablet mirabegron 50 mg tablet,extended 50 mg PO DAILY 09/20/21 10/09/21 release 24 hr (Myrbetriq) nitroglycerin 0.4 mg sublingual 0.4 mg sublingual Q5M PRN Chest 09/20/21 10/09/21 tablet Pain tamsulosin 0.4 mg capsule 0.4 mg PO DAILY 09/20/21 10/09/21 cetirizine 10 mg tablet 5 mg PO DAILY 09/25/21 10/09/21 fluticasone propionate 50 1 spray intranasal DAILY 09/25/21 10/09/21 mcg/actuation nasal spray,suspension galantamine 4 mg tablet 16 mg PO BID 09/25/21 10/09/21 levothyroxine 50 mcg tablet 50 mcg PO DAILY 09/25/21 10/09/21 (Synthroid) memantine 10 mg tablet 10 mg PO BID 09/25/21 10/09/21 Allergies Allergy/AdvReac Type Severity Reaction Status Date / Time No Known Allergies Allergy Verified 10/09/21 11:36 Review of Systems Review of Systems: CONSTITUTIONAL: Denies fever. MUSCULOSKELETAL: Reports R hip pain. NEUROLOGIC: Reports unknown HI or LOC. ROS unobtainable: Yes unobtainable due to mental status PMFSH Past Medical History Medical History Basal cell carcinoma of scalp BPH (benign prostatic hyperplasia) CAD (coronary artery disease) Cervical compression fracture Chronic renal failure, stage 3 (moderate) Dementia DM2 (diabetes mellitus, type 2) Family history of early CAD Gout HTN (hypertension) with goal to be determined Hyperlipidemia Hypothyroidism Lumbar compression fracture Prostate cancer Rib fracture Surgical History Surgical History History of removal of pigmented skin lesion History of tonsillectomy Hx laparoscopic cholecystectomy Hx of CABG Family History Family History Mother Acute myocardial infarction Father Cancer Sibling Cancer Social History Social History Social History: the patient is and lives with his . He tells me that he has 3 children. His daughter Regina is the power patent prosecution attorney for healthcare. He remains sides at [facility] He is a former smoker and denies any alcohol marijuana or illicit drugs. Code status dnr Smoking status: Former smoker Alcohol intake: former Substance use: never Living arrangements: assisted living Spiritual care concerns: No Exam Narrative: GENERAL: Elderly, well-nourished, non-toxic, in no acute distress. HEAD: Normocephalic, atraumatic. EYES: PERRL/EOMI, conjunctivae clear bilaterally. NECK: Supple. No adenopathy, no masses. No appreciable midline cervical spinal tenderness. RESPIRATORY: Airway patent, respirations
--- NOTE | 2021-10-09 10:25 | PC.NURSE ---
Patient off unit to CT.
--- NOTE | 2021-10-09 11:01 | PC.NURSE ---
Patient report given to JOSUÉ Reese. All questions answered and care of patient transferred.
--- NOTE | 2021-10-09 11:24 | ECG_ITS ---
Measurements Intervals [place] Rate: 58 P: 29 UT: 173 QRS: 62 QRSD: 145 T: 52 QT: 470 QTc: 464 Interpretive Statements SINUS BRADYCARDIA RIGHT BUNDLE BRANCH BLOCK [120+ ms QRS DURATION, UPRIGHT V1, 40+ ms S IN I/aVL/V4/V5/V6] NO PREVIOUS ECG AVAILABLE FOR COMPARISON Electronically Signed On 10-09-2021 13:42:39 CDT by Halle Tesfaye M.D.
[2021-10-09] MEDS: MORPHINE SULFATE (*CRX) 4 MG/ML INJ IV PUSH (11:37)
[2021-10-09] MEDS: ONDANSETRON INJ 4 MG/2 ML VIAL IV PUSH (11:37)
[2021-10-09 12:04] LABS: Basophils Percent Auto 0.5 % (0.2-1.2); Eosinophils Absolute Auto 0.2 K/mm3 (0-0.3); Eosinophils Percent Auto 2.8 % (0-4.4); Hematocrit 34.9 % (42.0-52.0); Hemoglobin 11.4 g/dL (14.0-18.0); Immature Granulocyte Absolute 0.04 K/mm3 (0.00-0.031); Immature Granulocyte Percent A 0.5 % (0-0.5); Immature Platelet Fraction Pct 5.2 % (0.9-11.2); Lymphocytes Absolute Auto 0.99 K/mm3 (0.9-3.2); Lymphocytes Percent Auto 12.2 % (18.3-44.2); Mean Corpuscular HGB Conc 32.7 g/dl (32-36); Mean Corpuscular Hemoglobin 31.1 pg (26-34); Mean Corpuscular Volume 95.1 fl (80-100); Mean Platelet Volume 11.3 fl (7.4-10.4); Monocytes Absolute Auto 0.5 K/mm3 (0.1-0.6); Monocytes Percent Auto 6.3 % (2.6-8.5); Neutrophils Absolute Auto 6.3 K/mm3 (1.3-6.7); Neutrophils Percent Auto 77.7 % (45.5-73.1); Red Blood Count 3.67 M/mm3 (4.6-6.20); Red Cell Distribution Width 14.4 % (11.5-14.5); White Blood Count 8.1 K/mm3 (4.5-10.0)
[2021-10-09 12:08] LABS: Platelet Count Result 120 k/mm3 (150-375)
[2021-10-09 12:13] LABS: INR 1.1; Prothrombin Time 13.3 Seconds (11.1-14.7)
[2021-10-09 12:14] LABS: Partial Thromboplastin Time 26.1 SECONDS (22.3-36.8)
[2021-10-09 12:15] LABS: Alanine Aminotransferase 22 U/L (6-50); Albumin Level 3.3 g/dL (3.5-5.1); Alkaline Phosphatase 138 U/L (38-126); Anion Gap 3 mmol/L (8-16); Aspartate Amino Transferase 28 U/L (17-59); Bilirubin,Total 1.1 mg/dL (0.2-1.3); Blood Urea Nitrogen 25 mg/dL (9-20); Calcium 9.2 mg/dL (8.4-10.2); Carbon Dioxide 28 mmol/L (22-30); Chloride 109 mmol/L (98-107); Estimated CRCL calculation 39 ml/min; Estimated Glomerular Filt Rate 52; Glucose 103 mg/dL (65-110); Potassium 4.7 mmol/L (3.4-5.0); Sodium 140 mmol/L (137-145)
--- NOTE | 2021-10-09 12:40 | PM.IMHP ---
H&P: HPI History of Present Illness Date/Time: 10/09/21 12:40 Chief Complaint: Fall with hip pain Narrative: This is an 86-year-old male patient who lives with his in [facility] [place]. The patient does have a history of dementia but is typically able ambulate on his own. According to his knee status at the bedside, the patient tried to use the restroom by himself today and fell. He is complaining of right hip pain. EMS was activated. It is not known if he hit his head or lost consciousness. Cervical spine CT was read as no fracture mild cervical spondylosis. Head CT was read as stable mild nonspecific cerebral white matter disease, which likely represents chronic small vessel ischemic disease. Chest x-ray was read as small lung volumes with mild airspace opacities and right midlung zone and left lower lung zones consistent with atelectasis versus pneumonia. Hip and pelvis x-ray was read as basicervical fracture of right femoral neck. Mild osteoarthritis of the hips. Dr. Gee has been consulted. The patient was given Dilaudid for pain and Zofran for nausea. IV fluids were started. The patient is being admitted to observation status on the date of service of 10/09/2021 Review of Systems Review of Systems: See HPI All systems reviewed & are unremarkable except as noted in HPI and below Constitutional: Constitutional: Reports as per HPI and Reports no additional constitutional complaints Eyes: Eyes: Reports as per HPI and Reports no additional eye complaints ENT: Reports system reviewed and no additional complaints, except as documented and Reports Normal hearing present Cardiovascular: Cardiovascular: Reports no additional cardiovascular complaints Respiratory: Respiratory: Reports no additional respiratory complaints and Reports no additional respiratory complaints Gastrointestinal: Gastrointestinal: Reports as per HPI and Reports no additional gastrointestinal complaints Musculoskeletal: Musculoskeletal: Reports no additional musculoskeletal complaints Integumentary/Breasts: Skin/Breast: Reports system reviewed and no additional complaints, except as docu and Reports as per HPI Neurologic: Reports system reviewed and no additional complaints, except as documented, Reports as per HPI and Reports Normal hearing present Psychiatric: Psychiatric: Reports no additional psychiatric complaints and Reports as per HPI Endocrine: Endocrine: Reports no additional endocrine complaints Hematologic/Lymphatic: Hematologic/Lymphatic: Reports no additional hematologic/lymphatic complaints Allergic/Immunologic: Allergic/Immunologic: Reports no additional allergic/immunologic complaints [facility] Past Medical History Medical History (Updated 10/09/21 @ 13:32 by Ela Yi NP) Basal cell carcinoma of scalp BPH (benign prostatic hyperplasia) CAD (coronary artery disease) Cervical compression fracture Chronic renal failure, stage 3 (moderate) Dementia DM2 (diabetes mellitus, type 2) Family history of early CAD Gout HTN (hypertension) with goal to be determined Hyperlipidemia Hypothyroidism Lumbar compression fracture Prostate cancer Rib fracture Surgical History Surgical History (Updated 10/09/21 @ 13:18 by Ela Yi NP) History of removal of pigmented skin lesion History of tonsillectomy Hx laparoscopic cholecystectomy Hx of CABG Family History Family History Mother Acute myocardial infarction Father Cancer Sibling Cancer Social History Social History (Updated 10/09/21 @ 13:20 by Ela Yi NP) Social History: the patient is and lives with his . He tells me that he has 3 children. His daughter Regina is the power commercial litigation attorney for healthcare. He remains sides at [facility] He is a former smoker and denies any alcohol marijuana or illicit drugs. Code status dnr Smoking status: F
[2021-10-09] MEDS: SODIUM CHLORIDE 0.9% IV 500 ML 999 ML IV CONT (12:45)
[2021-10-09] MEDS: HYDROmorphone HCL INJ (*CRX) 1 MG/ML SYR 0.5 MG IV PUSH (12:46)
--- NOTE | 2021-10-09 13:57 | PC.NURSE ---
This patient, Jennifer Conley, was admitted to Medical Room 247-. Patient/family oriented to hospital policies and general routines including ID bracelet, bed and alarms, visiting hours, pain management, procedures, bathroom and other care routines, personal items, smoking policy, room service/diet, and visiting hours. Information on how to activate the Rapid Response Team has been discussed. Patient/Family are encouraged to report perceived risks to care and to ask questions if they do not understand what they are told or what they should do.
[2021-10-09] MEDS: MEMANTINE 10 MG TABLET PO (17:38)
[2021-10-09] MEDS: GALANTAMINE HYDROBROMIDE 8 MG TABLET 16 MG PO (17:38)
[2021-10-09] MEDS: CITALOPRAM HYDROBROMIDE 10 MG TABLET PO (20:26)
--- NOTE | 2021-10-09 21:18 | WPDANESEPP ---
Anes - Eval Pre Procedure Date/Time: 10/09/21 21:18 Pre Op Diagnosis: R Femoral Neck Fracture Patient Data Age: 86 Gender: M Height: 1.8 m Weight: 79.9 kg Last Vital Signs Temp 36.9 C 10/09/21 19:53 Pulse 87 10/09/21 19:53 Resp 12 10/09/21 19:53 BP 101/53 L 10/09/21 19:53 Pulse Ox 95 10/09/21 19:53 O2 Del Method Room Air 10/09/21 20:00 Allergies Allergy/AdvReac Type Severity Reaction Status Date / Time No Known Allergies Allergy Verified 10/09/21 11:36 Home Medications Medication Instructions Recorded Confirmed Type aspirin 81 mg chewable tablet 81 mg PO DAILY 02/16/19 10/09/21 History atorvastatin 20 mg tablet 20 mg PO DAILY 02/16/19 10/09/21 History metoprolol succinate 25 mg 25 mg PO DAILY 02/16/19 10/09/21 History tablet,extended release 24 hr (Toprol XL) acetaminophen 500 mg tablet 500 mg PO Q8H PRN Pain (Scale 09/20/21 10/09/21 History (Tylenol Extra Strength) Score 1-3) allopurinol 100 mg tablet 100 mg PO DAILY 09/20/21 10/09/21 History celecoxib 200 mg capsule 200 mg PO DAILY 09/20/21 10/09/21 History cyanocobalamin (vitamin B-12) 1,000 mcg PO DAILY 09/20/21 10/09/21 History 1,000 mcg tablet mirabegron 50 mg tablet,extended 50 mg PO DAILY 09/20/21 10/09/21 History release 24 hr (Myrbetriq) nitroglycerin 0.4 mg sublingual 0.4 mg sublingual Q5M PRN Chest 09/20/21 10/09/21 History tablet Pain tamsulosin 0.4 mg capsule 0.4 mg PO DAILY 09/20/21 10/09/21 History cetirizine 10 mg tablet 5 mg PO DAILY 09/25/21 10/09/21 History fluticasone propionate 50 1 spray intranasal DAILY 09/25/21 10/09/21 History mcg/actuation nasal spray,suspension galantamine 4 mg tablet 16 mg PO BID 09/25/21 10/09/21 History levothyroxine 50 mcg tablet 50 mcg PO DAILY 09/25/21 10/09/21 History (Synthroid) memantine 10 mg tablet 10 mg PO BID 09/25/21 10/09/21 History citalopram 10 mg tablet 10 mg PO QHS 30 days #30 tabs 09/30/21 10/09/21 Rx lisinopril 10 mg tablet 10 mg PO DAILY #30 tabs 09/30/21 10/09/21 Rx Laboratory Tests 10/09/21 10/09/21 10/09/21 11:55 11:55 11:55 WBC 8.1 K/mm3 K/mm3 (4.5-10.0) RBC 3.67 M/mm3 L M/mm3 (4.6-6.20) Hgb 11.4 g/dL L g/dL (14.0-18.0) Hct 34.9 % L % (42.0-52.0) MCV 95.1 fl fl (80-100) MCH 31.1 pg pg (26-34) MCHC 32.7 g/dl g/dl (32-36) RDW 14.4 % % (11.5-14.5) Plt Count 120 k/mm3 L k/mm3 (150-375) MPV 11.3 fl H fl (7.4-10.4) Immature Gran % (Auto) 0.5 % % (0-0.5) Neut % (Auto) 77.7 % H % (45.5-73.1) Lymph % (Auto) 12.2 % L % (18.3-44.2) [place] % (Auto) 6.3 % % (2.6-8.5) Eos % (Auto) 2.8 % % (0-4.4) Baso % (Auto) 0.5 % % (0.2-1.2) Lymph # (Auto) 0.99 K/mm3 K/mm3 (0.9-3.2) [place] # (Auto) 0.5 K/mm3 K/mm3 (0.1-0.6) Eos # (Auto) 0.2 K/mm3 K/mm3 (0-0.3) Baso # (Auto) 0.0 K/mm3 K/mm3 (0.0-0.1) Abs Immat Gran (auto) 0.04 K/mm3 H K/mm3 (0.00-0.031) Absolute Neuts (auto) 6.3 K/mm3 K/mm3 (1.3-6.7) Absolute Nucleated RBC 0.0 K/mm3 K/mm3 (0.0-0.012) Nucleated RBC % 0.0 % % (0.0-0.2) % Immature Plt Fraction 5.2 % % (0.9-11.2) PT 13.3 Seconds Seconds (11.1-14.7) INR 1.1 APTT 26.1 SECONDS SECONDS (22.3-36.8) Sodium 140 mmol/L mmol/L (137-145) Potassium 4.7 mmol/L mmol/L (3.4-5.0) Chloride 109 mmol/L H mmol/L (98-107) Carbon Dioxide 28 mmol/L mmol/L (22-30) Anion Gap 3 mmol/L L mmol/L (8-16) BUN 25 mg/dL H D mg/dL (9-20) Creatinine 1.30 mg/dL mg/dL (0.7-1.3) Estim Creat Clear Calc 39 ml/min ml/min Estimated GFR 52 L (59 - ) Glucose 103 mg/dL mg/dL (65-110) Calcium 9.2 mg/dL mg/dL (8.4-10.2) Total Bilirubin
[2021-10-10] VITALS (13 sets, daily range): BP systolic 121–145; BP diastolic 53–79; PULSE 74–91; RESP 12–18; TEMP 35.9–36.6; O2SAT 92–98
[2021-10-10 05:10] LABS: Basophils Percent Auto 0.4 % (0.2-1.2); Eosinophils Absolute Auto 0.3 K/mm3 (0-0.3); Eosinophils Percent Auto 3.2 % (0-4.4); Hemoglobin 10.7 g/dL (14.0-18.0); Immature Granulocyte Absolute 0.02 K/mm3 (0.00-0.031); Immature Granulocyte Percent A 0.2 % (0-0.5); Lymphocytes Absolute Auto 1.34 K/mm3 (0.9-3.2); Lymphocytes Percent Auto 16.3 % (18.3-44.2); Mean Corpuscular HGB Conc 32.4 g/dl (32-36); Mean Corpuscular Hemoglobin 30.4 pg (26-34); Mean Corpuscular Volume 93.8 fl (80-100); Monocytes Absolute Auto 0.7 K/mm3 (0.1-0.6); Monocytes Percent Auto 8.7 % (2.6-8.5); Neutrophils Absolute Auto 5.9 K/mm3 (1.3-6.7); Neutrophils Percent Auto 71.2 % (45.5-73.1); Platelet Count Result 110 k/mm3 (150-375); Red Blood Count 3.52 M/mm3 (4.6-6.20); Red Cell Distribution Width 14.4 % (11.5-14.5); White Blood Count 8.2 K/mm3 (4.5-10.0)
[2021-10-10 05:20] LABS: Lactic Acid Reflex 0.7 mmol/L (0.7-2.0)
[2021-10-10 05:28] LABS: Alanine Aminotransferase 166 U/L (6-50); Albumin Level 3.1 g/dL (3.5-5.1); Alkaline Phosphatase 268 U/L (38-126); Anion Gap 7 mmol/L (8-16); Aspartate Amino Transferase 115 U/L (17-59); Bilirubin,Total 1.6 mg/dL (0.2-1.3); Blood Urea Nitrogen 24 mg/dL (9-20); Calcium 8.9 mg/dL (8.4-10.2); Carbon Dioxide 27 mmol/L (22-30); Chloride 105 mmol/L (98-107); Estimated CRCL calculation 39 ml/min; Estimated Glomerular Filt Rate 52; Glucose 100 mg/dL (65-110); Magnesium 1.8 mg/dL (1.6-2.3); Potassium 4.1 mmol/L (3.4-5.0); Sodium 139 mmol/L (137-145)
--- NOTE | 2021-10-10 06:37 | PM.CNOR ---
Assessment and Plan Assessment and plan (1) Femoral neck fracture: Qualifiers: Encounter type: initial encounter Fracture type: closed Laterality: right Qualified Code(s): S72.001A - Fracture of unspecified part of neck of right femur, initial encounter for closed fracture Code(s): S72.009A - Fracture of unspecified part of neck of unspecified femur, initial encounter for closed fracture Status: Acute Assessment and Plan: Discussed nonoperative and operative treatment options with the patient. Risks and benefits of each as well as alternatives were reviewed. All of the patient's questions were answered. The risks of surgery reviewed including but not limited to: Neurovascular damage, wound complication, infection, blood clot, pulmonary embolus, stroke, myocardial infarction, and anesthetic risks up to and including . Continued pain and possible dysfunction were explained. Specific risks of the procedure including later recurrence of deformity. No guarantees were offered. If hardware used, discussed risk of failure/ breakage and possible need for removal. If complications occur, the patient understands the need for further treatment, possible further surgery. Patient verbalizes understanding and wishes to proceed. PLAN: Right hip pinning History of Present Illness HPI Consult date: 10/10/21 Requesting physician: Rosangela Busch PA-C Chief complaint: R Femoral Neck Fracture Narrative: 86 yo man fell while ambulating on right side. Right hip pain. Unable to bear weight. ER xrays show riht hip fx. Review of Systems Constitutional: Constitutional: Denies fever(s) Eyes: Eyes: Denies blurry vision ENT: Reports Normal hearing present Cardiovascular: Cardiovascular: Denies chest pain and Denies dyspnea Respiratory: Respiratory: Denies dyspnea and Denies wheezing Gastrointestinal: Gastrointestinal: Denies abdominal pain Genitourinary: Genitourinary: Denies urinary urgency Musculoskeletal: Musculoskeletal: Reports as per HPI and Denies numbness Integumentary/Breasts: Skin/Breast: Denies changing lesions and Denies sores Neurologic: Reports Normal hearing present, Denies behavioral changes, Denies confusion, Denies numbness and Denies convulsions Psychiatric: Psychiatric: Denies behavioral changes, Denies confusion and Denies hallucinations Endocrine: Endocrine: Denies heat intolerance Hematologic/Lymphatic: Hematologic/Lymphatic: Denies easy bleeding Allergic/Immunologic: Allergic/Immunologic: Denies wheezing PMFSH Past Medical History Medical History Basal cell carcinoma of scalp BPH (benign prostatic hyperplasia) CAD (coronary artery disease) Cervical compression fracture Chronic renal failure, stage 3 (moderate) Dementia DM2 (diabetes mellitus, type 2) Family history of early CAD Gout HTN (hypertension) with goal to be determined Hyperlipidemia Hypothyroidism Lumbar compression fracture Prostate cancer Rib fracture Surgical History Surgical History H/O sinus surgery History of removal of pigmented skin lesion History of tonsillectomy Hx laparoscopic cholecystectomy Hx of CABG Family History Family History Mother Acute myocardial infarction Father Cancer Sibling Cancer Social History Social History Social History: the patient is and lives with his . He tells me that he has 3 children. His daughter Regina is the power divorce attorney for healthcare. He remains sides at [facility] He is a former smoker and denies any alcohol marijuana or illicit drugs. Code status dnr Smoking status: Former smoker Tobacco type: cigarettes Alcohol intake: former Substance use: never Living arrangements: assisted living Sp
--- NOTE | 2021-10-10 07:29 | P.PNAN_ITS ---
Anes - Eval Final PreProcedure Day of Procedure 10/10/21 07:29 Patient weight: normal Heart: regular rate and rhythm Lungs: clear to auscultation Airway: Mallampati scale class II and other (upper denture) Neurological: alert and oriented (x 1) Last oral intake: >/= 8 hours ASA classification: III Emergent: no Anesthetic plan: proceed Anesthesia type and monitoring: general LMA and standard monitoring Results Review: All pre-operative results and documents have been reviewed as part of the pre- operative evaluation. Informed Consent: The patient's anesthetic plan and its attendant risks and benefits were discussed with the patient/family/POA. Questions were solicited and answers provided to the satisfaction of the patient/family/POA.
--- NOTE | 2021-10-10 07:36 | WPDHPUPDATE1 ---
History and Physical Update Update Date/Time: 10/10/21 07:36 History and Physical has been reviewed, including an updated exam of the patient. There are NO changes in the patient's condition. Risks, benefits, and alternatives have been discussed and questions answered. Patient agrees to proceed with procedure.
[2021-10-10] MEDS: LACTATED RINGERS 1,000 ML 30 ML IV CONT (08:00)
[2021-10-10 08:11] LABS: Lipase 476 U/L (23-300)
[2021-10-10] MEDS: BUPIVACAINE/EPINEPHRINE 0.25% 50 ML VIAL 30 ML INFILTRATE (08:15)
--- NOTE | 2021-10-10 08:51 | W.PM.PROC2 ---
Procedure Note - Detailed Date of Procedure 10/10/21 Pre-op Diagnosis R Femoral Neck Fracture Post-op Diagnosis Same Procedure Performed Right hip pinning Surgeon Ghulam Gee MD Registered Nurse First Assistant 1st paralegal assistant Anesthesia General Indications 86-year-old gentleman who fell and sustained a right hip femoral neck fracture. Presents now for operative treatment. Patient medically cleared. Power of trade mark attorney questions answered and consent given. Description of Procedure Informed consent signed. Extremity marked in preoperative holding area. Patient received intravenous antibiotics. Brought to operating room and underwent general anesthetic by the Anesthesia Team. Positioned supine on the fracture table. Right leg placed into longitudinal traction. Left leg extended out of field. Image intensification brought in and confirm reduction of fracture. Right hip prepped and draped in usual sterile surgical fashion using ChloraPrep skin solution. Image intensification used to guide the starting position and a longitudinal incision made with 10 blade knife over the lateral proximal femur. Blunt dissection carried down to the lateral femur. Bleeding controlled with electrocautery. First guide pin placed in the inferior center position of the femoral neck and head. Confirmed with image intensification. Two subsequent pins placed superior and anterior and superior and posterior to the 1st pin to create an inverted triangle type pattern. Pins confirmed with image intensification. Length of screw measured, reaming performed. Appropriate size screw placed with good compression and fixation noted for all 3 pins. Guide pins removed. Final image intensification confirmed reduction of fracture and placement of hardware. Wound thoroughly irrigated with antibiotic solution. Fascia repaired with 2 Vicryl interrupted sutures. Subcutaneous tissue repaired with 3 0 Monocryl interrupted suture. Sterile dressing applied. Patient woken from anesthesia, extubated and returned to recovery room in stable condition. All sponge needle and instrument counts correct at the end of the case. Implants [employer] 6.5 millimeter cannulated screw x3 Estimated Blood Loss -20.0 Urine Output -150.0 Drains No Packing No Pathology None sent Complications None Condition Stable Disposition PACU
[2021-10-10] MEDS: CYANOCOBALAMIN 1,000 MCG TABLET 1000 MCG PO (10:17)
[2021-10-10] MEDS: ATORVASTATIN 20 MG TABLET PO (10:17)
[2021-10-10] MEDS: GALANTAMINE HYDROBROMIDE 8 MG TABLET 16 MG PO ×2 (10:17→17:12)
[2021-10-10] MEDS: MIRABEGRON 50 MG ER TABLET PO (10:17)
[2021-10-10] MEDS: MEMANTINE 10 MG TABLET PO ×2 (10:17→17:12)
[2021-10-10] MEDS: FLUTICASONE PROPIONATE 0.05% NA SPR 16 GM BTL (*BKC) 1 SPRAY NASAL (10:17)
[2021-10-10] MEDS: lisinopriL 10 MG TABLET PO (10:17)
[2021-10-10] MEDS: ASPIRIN 81 MG CHEWABLE TABLET PO (10:18)
[2021-10-10] MEDS: TAMSULOSIN HCL 0.4 MG CAPSULE PO (10:18)
[2021-10-10] MEDS: METOPROLOL SUCCINATE EXT REL 25 MG TABCR PO (10:18)
[2021-10-10] MEDS: allopurinoL 100 MG TABLET PO (10:18)
[2021-10-10] MEDS: polyethylene glycoL 3350 17 GM POWD.PACK PO (10:18)
[2021-10-10] MEDS: CELECOXIB 200 MG CAPSULE PO (10:18)
[2021-10-10] MEDS: SENNA/DOCUSATE SODIUM TABLET 2 TAB PO ×2 (10:19→17:12)
[2021-10-10 10:54] LABS: Appearance Urine Clear (Clear); Bilirubin Urine Negative (Negative); Blood Urine 1+ (Negative); Color Urine Yellow (Yellow); Glucose Urine UA Negative (Negative); Ketones Urine 1+ mg/dL (Negative); Leukocyte Esterase Ur Trace LEU/UL (Negative); Nitrate Urine Negative (Negative); Protein Urine 1+ mg/dL (Negative); Specific Grav Ur >= 1.030 (1.001-1.035); Urobilinogen Urine 0.2 mg/dL (<2.0)
[2021-10-10 10:57] LABS: Mucus Urine Rare /lpf; Squamous Epithelial Cell Urine Rare /hpf (Few)
[2021-10-10 11:02] LABS: Add Urine Microscopic? YES
[2021-10-10 11:10] LABS: Hepatitis B Surface Antigen Negative (Negative)
[2021-10-10 11:16] LABS: HAV RESULT Negative (Negative); Hepatitis B Core IgM Result Negative (Negative)
[2021-10-10 11:28] LABS: Hepatitis C Virus Antibody Negative (Negative)
--- NOTE | 2021-10-10 11:45 | PM.IMPN ---
Progress Note: A&P Assessment and Plan (1) Femoral neck fracture: Qualifiers: Encounter type: initial encounter Fracture type: closed Laterality: right Qualified Code(s): S72.001A - Fracture of unspecified part of neck of right femur, initial encounter for closed fracture Code(s): S72.009A - Fracture of unspecified part of neck of unspecified femur, initial encounter for closed fracture Status: Acute Assessment and Plan: -continue with analgesics -ortho consult was placed. -Ortho to manage post op care -Surgical procedure scheduled for today -Cefazolin 1gm x 3 bags -PT/OT when appropriate -Pain management: Morphine 4mg IV Q2H, norco 1 tab Q3H PRN -Bowel regimen: Mylanta 30ml PO Q6H PRN, Senna and Miralax scheduled -Anti-emetics: Ondansetron 4mg IV Q4H PRN -DVT deferred to Ortho (2) HTN (hypertension) with goal to be determined: Code(s): I10 - Essential (primary) hypertension Status: Acute Assessment and Plan: -BP 126/63 -Continue home lisinopril, metoprolol -Trend bp -Adjust therapy as indicated (3) Hyperlipidemia: Code(s): E78.5 - Hyperlipidemia, unspecified Status: Acute Assessment and Plan: -continue with home medication when home medication reconciliation is complete (4) Hypothyroidism: Code(s): E03.9 - Hypothyroidism, unspecified Status: Acute Assessment and Plan: -thyroid 1.710 -continue with levothyroxine (5) Dementia: Qualifiers: Dementia behavioral disturbance: without behavioral disturbance Dementia type: unspecified type Qualified Code(s): F03.90 - Unspecified dementia without behavioral disturbance Code(s): F03.90 - Unspecified dementia without behavioral disturbance Status: Acute Assessment and Plan: -continue with home medications (6) BPH (benign prostatic hyperplasia): Code(s): N40.0 - Benign prostatic hyperplasia without lower urinary tract symptoms Status: Acute Assessment and Plan: -continue with home tamsulosin -Trend urine output -PRN bladder scan once urinary catheter is out (7) Gout: Code(s): M10.9 - Gout, unspecified Status: Acute Assessment and Plan: -continue with home allopurinol (8) Chronic renal failure, stage 3 (moderate): Code(s): N18.30 - Chronic kidney disease, stage 3 unspecified Status: Acute Assessment and Plan: -Current BUN/Cr 15/03.30 -Baseline appears to be 1.6-2 -Stable at this time -Trend labs -Avoid nephrotoxic medications (9) Anemia: Code(s): D64.9 - Anemia, unspecified Status: Acute Assessment and Plan: -Current H/H 10.7/33.0 -Anemia labs -Supplement as indicated -Trend labs -Transfuse if Hgb <7 (10) Transaminitis: Code(s): R74.01 - Elevation of levels of liver transaminase levels Status: Acute Assessment and Plan: -AST/ALT 115/106, Alk Phos 268 -Total bilirubin 1.6 -Hep panel negative -No pain or tenderness of exam -Trend labs Time Spent With Patient Time with patient: Greater than 35 minutes Subjective Date/time seen: 10/10/21 11:45 Interval history: 10/10/21 1145 Patient just returned from surgery. Patient stated he was having a lot of his pain. Patient is alert oriented times self only. He does not know where he is at currently in or the year. He denies any other issues and seems to be very disgruntled which seems to be because he does not know where he is. Complete review of systems was not performed as mental status is the complication. Side note the patient is pleasantly crabby. He is cooperative. 10/09/21? 12:40 This is an 86-year-old male patient who lives with his in [facility].? The patient does have a history of dementia but is typically able ambulate on his own.?
[2021-10-10 12:36] LABS: Transferrin 127 mg/dL (206-381)
[2021-10-10] MEDS: KCL 20 MEQ/D5/0.45% SOD CHL 1,000 ML 80 ML IV CONT (12:36)
[2021-10-10 13:18] LABS: Iron 83 ug/dL (49-181); Percent Iron Saturation 37 % (20-50)
[2021-10-10] MEDS: HYDROcodone/acetaminophen (*CRX) 5-325 MG TABLET 1 TAB PO ×2 (13:33→17:42)
[2021-10-10 13:38] LABS: Folic Acid 5.9 ng/mL (2.76->20)
[2021-10-10] MEDS: MORPHINE SULFATE (*CRX) 4 MG/ML INJ IV PUSH (19:59)
[2021-10-10] MEDS: HALOPERIDOL LACTATE 5 MG/ML VIAL IM (21:15)
[2021-10-10] MEDS: CITALOPRAM HYDROBROMIDE 10 MG TABLET PO (22:45)
[2021-10-11] VITALS (7 sets, daily range): BP systolic 101–127; BP diastolic 45–62; PULSE 63–76; RESP 16–20; TEMP 36.2–36.8; O2SAT 91–98
[2021-10-11 05:57] LABS: Basophils Absolute Auto 0.1 K/mm3 (0.0-0.1); Basophils Percent Auto 0.5 % (0.2-1.2); Eosinophils Absolute Auto 0.3 K/mm3 (0-0.3); Eosinophils Percent Auto 2.9 % (0-4.4); Hematocrit 33.7 % (42.0-52.0); Hemoglobin 10.6 g/dL (14.0-18.0); Immature Granulocyte Absolute 0.04 K/mm3 (0.00-0.031); Immature Granulocyte Percent A 0.4 % (0-0.5); Immature Platelet Fraction Pct 6.3 % (0.9-11.2); Lymphocytes Percent Auto 15.2 % (18.3-44.2); Mean Corpuscular HGB Conc 31.5 g/dl (32-36); Mean Corpuscular Hemoglobin 30.6 pg (26-34); Mean Corpuscular Volume 97.4 fl (80-100); Monocytes Absolute Auto 0.4 K/mm3 (0.1-0.6); Monocytes Percent Auto 4.4 % (2.6-8.5); Neutrophils Absolute Auto 7.6 K/mm3 (1.3-6.7); Neutrophils Percent Auto 76.6 % (45.5-73.1); Platelet Count Result 93 k/mm3 (150-375); Red Blood Count 3.46 M/mm3 (4.6-6.20); Red Cell Distribution Width 14.3 % (11.5-14.5); White Blood Count 9.9 K/mm3 (4.5-10.0)
[2021-10-11 06:18] LABS: Alanine Aminotransferase 128 U/L (6-50); Albumin Level 3.1 g/dL (3.5-5.1); Alkaline Phosphatase 254 U/L (38-126); Anion Gap 3 mmol/L (8-16); Aspartate Amino Transferase 96 U/L (17-59); Bilirubin,Total 1.5 mg/dL (0.2-1.3); Blood Urea Nitrogen 24 mg/dL (9-20); Calcium 8.9 mg/dL (8.4-10.2); Carbon Dioxide 28 mmol/L (22-30); Chloride 104 mmol/L (98-107); Estimated CRCL calculation 39 ml/min; Estimated Glomerular Filt Rate 52; Glucose 100 mg/dL (65-110); Magnesium 1.9 mg/dL (1.6-2.3); Potassium 4.5 mmol/L (3.4-5.0); Sodium 135 mmol/L (137-145)
--- NOTE | 2021-10-11 09:24 | PM.CNOR ---
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 Basal cell carcinoma of scalp BPH (benign prostatic hyperplasia) CAD (coronary artery disease) Cervical compression fracture Chronic renal failure, stage 3 (moderate) COVID-19 Dementia DM2 (diabetes mellitus, type 2) Gout HTN (hypertension) with goal to be determined Hyperlipidemia Hypothyroidism Lumbar compression fracture Prostate cancer Urinary tract infection Surgical History Surgical History (Updated 10/10/21 @ 07:42 by DAYSI Sanchez) H/O sinus surgery History of removal of pigmented skin lesion History of tonsillectomy Hx laparoscopic cholecystectomy Hx of CABG Family History Family History Mother Acute myocardial infarction Father Cancer Sibling Cancer Social History Social History Social History: the patient is and lives with his . He tells me that he has 3 children. His daughter Regina is the power circus trainer for healthcare. He remains sides at [facility] He is a former smoker and denies any alcohol marijuana or illicit drugs. Code status dnr Smoking status: Former smoker Tobacco type: cigarettes Alcohol intake: former Substance use: never Spiritual care concerns: No Meds Home Medications and Allergies Home Medications Medication Instructions Recorded Confirmed Type aspirin 81 mg chewable tablet 81 mg PO DAILY 02/16/19 10/09/21 History atorvastatin 20 mg tablet 20 mg PO DAILY 02/16/19 10/09/21 History metoprolol succinate 25 mg 25 mg PO DAILY 02/16/19 10/09/21 History tablet,extended release 24 hr (Toprol XL) acetaminophen 500 mg tablet 500 mg PO Q8H PRN Pain (Scale 09/20/21 10/09/21 History (Tylenol Extra Strength) Score 1-3) allopurinol 100 mg tablet 100 mg PO DAILY 09/20/21 10/09/21 History celecoxib 200 mg capsule 200 mg PO DAILY 09/20/21 10/09/21 History cyanocobalamin (vitamin B-12) 1,000 mcg PO DAILY 09/20/21 10/09/21 History 1,000 mcg tablet mirabegron 50 mg tablet,extended 50 mg PO DAILY 09/20/21 10/09/21 History release 24 hr (Myrbetriq) nitroglycerin 0.4 mg sublingual 0.4 mg sublingual Q5M PRN Chest 09/20/21 10/09/21 History tablet Pain tamsulosin 0.4 mg capsule 0.4 mg PO DAILY 09/20/21 10/09/21 History cetirizine 10 mg tablet 5 mg PO DAILY 09/25/21 10/09/21 History fluticasone propionate 50 1 spray intranasal DAILY 09/25/21 10/09/21 History mcg/actuation nasal spray,suspension galantamine 4 mg tablet 16 mg PO BID 09/25/21 10/09/21 History levothyroxine 50 mcg tablet 50 mcg PO DAILY 09/25/21 10/09/21 History (Synthroid) memantine 10 mg tablet 10 mg PO BID 09/25/21 10/09/21 History citalopram 10 mg tablet 10 mg PO QHS 30 days #30 tabs 09/30/21 10/09/21 Rx lisinopril 10 mg tablet 10 mg PO DAILY #30 tabs 09/30/21 10/09/21 Rx Allergies Allergy/AdvReac Type Severity Reaction Status Date / Time No Known Allergies Allergy Verified 10/09/21 11:36 Vital Signs Vital Signs - 24 hr 10/10/21 09:30 10/10/21 09:42 10/10/21 10:49 Temperature Pulse Rate 80 77 Respiratory Rate 16 14 Blood Pressure 125/53 L 126/63 Pulse Oximetry 92 94 Oxygen Delivery Nasal Cannula Nasal Cannula Nasal Cannula Oxygen Flow Rate 3 3 3 10/10/21 09:45 10/10/21 10:00 10/10/21 10:30 Temperature 36.4 C L 35.9 C L 36.1 C L Pulse Rate 78 78 81 Respiratory Rate 12 12 12 Blood Pressure 145/65 H 141/57 H 141/67 H Pulse Oximetry 92 93 95 Oxygen Delivery Oxygen Flow Rate 10/10/21 11:30 10/10/21 17:54 10/10/21 22:00 Temperature 36.1 C L 36.3 C L 36.6 C Pulse Rate 74 74 91 Respiratory Rate 12 16 16 Blood Pressure 140/60
--- NOTE | 2021-10-11 09:25 | PM.PNORT ---
Progress Note: A&P Assessment and Plan (1) Femoral neck fracture: Qualifiers: Encounter type: initial encounter Fracture type: closed Laterality: right Qualified Code(s): S72.001A - Fracture of unspecified part of neck of right femur, initial encounter for closed fracture Code(s): S72.009A - Fracture of unspecified part of neck of unspecified femur, initial encounter for closed fracture Status: Acute Assessment and Plan: POD #1 : Right Hip Pinning PT/OT as tolerated. WBAT. Walker. HIGH FALL RISK. Continue pain control. Ice hip. Protect skin. SCDs. Incentive Spirometry Use. Monitor Dressing. Change prior to discharge. Bowel Regimen. Dispo: SNF pending medical stability Subjective Subjective Date/Time Seen: 10/11/21 09:25 Post Op day: 1 (Right Hip Pinning ) Interval history: POD #1: Right Hip Pinning Resting comfortably. Rousable to voice. Oriented to self only. Does complain of some pain. Review of Systems Review of Systems: ROS unobtainable: Yes unobtainable due to mental status Exam Const: General: comfortable and no acute distress Resp: Effort & Inspection: normal respiratory effort Cardio: Rate: regular rate Rhythm: regular rhythm GI: Inspection: non-distended Skin: General skin exam: normal color Other: Incision right hip c/d/i. Surrounding tissue without redness/warmth. Mild swelling consistent with recent surgery. No drainage. Extrem: Right lower extremity: normal to inspection, normal capillary refill, hip/thigh Details: tenderness Location: of the hip (Thigh soft ) Location: laterally and anteriorly, swelling Location: at the hip, abnormal ROM (limited consistent with recent surgery ) Details: pain with active ROM during and pain with passive ROM during and other (Incision c/d/i. ); no deformity and no unusual warmth, knee Details: normal to inspection; no tenderness and no swelling, lower leg (Negative Doreen's Sign ) Details: normal to inspection and no edema; no tenderness, ankle (+ankle dorsiflexion/plantarflexion) Details: normal to inspection and no edema; no tenderness, no swelling and no ecchymosis and foot Details: normal capillary refill, toes with normal ROM, vascular exam Details: dorsalis pedis pulse present and motor-sensory exam Details: light-touch normal; no tenderness Objective Data Vital Signs Vital Signs: Vital Signs - 24 hr 10/10/21 09:30 10/10/21 09:42 10/10/21 10:49 Temperature Pulse Rate 80 77 Respiratory Rate 16 14 Blood Pressure 125/53 L 126/63 Pulse Oximetry 92 94 Oxygen Delivery Nasal Cannula Nasal Cannula Nasal Cannula Oxygen Flow Rate 3 3 3 10/10/21 09:45 10/10/21 10:00 10/10/21 10:30 Temperature 36.4 C L 35.9 C L 36.1 C L Pulse Rate 78 78 81 Respiratory Rate 12 12 12 Blood Pressure 145/65 H 141/57 H 141/67 H Pulse Oximetry 92 93 95 Oxygen Delivery Oxygen Flow Rate 10/10/21 11:30 10/10/21 17:54 10/10/21 22:00 Temperature 36.1 C L 36.3 C L 36.6 C Pulse Rate 74 74 91 Respiratory Rate 12 16 16 Blood Pressure 140/60 139/79 121/63 Pulse Oximetry 94 97 96 Oxygen Delivery Oxygen Flow Rate 10/11/21 00:00 10/11/21 05:38 10/11/21 07:30 Temperature 36.8 C 36.4 C 36.4 C Pulse Rate 76 68 69 Respiratory Rate 16 18 16 Blood Pressure 111/62 116/56 L 113/45 L Pulse Oximetry 98 92 93 Oxygen Delivery Oxygen Flow Rate Intake/Output Intake/Output: Intake & Output 10/08/21 10/09/21 10/10/21 10/11/21 23:59 23:59 23:59 23:59 Intake Total 370 1430 350 Output Total 250 680 450 Balance 120 750 -100 Meds/Results Medications: Active Medications Generic Name Dose Route Start Last Admin Trade Name Freq PRN Reason Stop Dose Admin Acetaminophen 650 mg 10/10/21 09:45 Acetaminophen 325 Mg Tablet PO Q6H PRN Mild Pain (1-3) or Fever Hydrocodone Bitart/Acetaminophen 1 tab 10/10/21 09:45 10/10/21 17:42 Hydrocodone/Acetaminophen (*Crx) 5-325 Mg Tablet PO 1 tab
[2021-10-11] MEDS: ASPIRIN 81 MG CHEWABLE TABLET PO (09:43)
[2021-10-11] MEDS: allopurinoL 100 MG TABLET PO (09:43)
[2021-10-11] MEDS: GALANTAMINE HYDROBROMIDE 8 MG TABLET 16 MG PO ×2 (09:43→16:53)
[2021-10-11] MEDS: FLUTICASONE PROPIONATE 0.05% NA SPR 16 GM BTL (*BKC) 1 SPRAY NASAL (09:43)
[2021-10-11] MEDS: CELECOXIB 200 MG CAPSULE PO (09:43)
[2021-10-11] MEDS: CYANOCOBALAMIN 1,000 MCG TABLET 1000 MCG PO (09:43)
[2021-10-11] MEDS: SENNA/DOCUSATE SODIUM TABLET 2 TAB PO ×2 (09:43→16:52)
[2021-10-11] MEDS: ATORVASTATIN 20 MG TABLET PO (09:43)
[2021-10-11] MEDS: TAMSULOSIN HCL 0.4 MG CAPSULE PO (09:44)
[2021-10-11] MEDS: MIRABEGRON 50 MG ER TABLET PO (09:44)
[2021-10-11] MEDS: METOPROLOL SUCCINATE EXT REL 25 MG TABCR PO (09:44)
[2021-10-11] MEDS: MEMANTINE 10 MG TABLET PO ×2 (09:44→16:53)
[2021-10-11] MEDS: HYDROcodone/acetaminophen (*CRX) 5-325 MG TABLET 1 TAB PO ×2 (09:47→20:21)
[2021-10-11] MEDS: lisinopriL 10 MG TABLET PO (09:51)
[2021-10-11] MEDS: polyethylene glycoL 3350 17 GM POWD.PACK PO (09:51)
--- NOTE | 2021-10-11 09:53 | WPDANESPN ---
Anes - Prog Note Post-Op Date/Time: 10/11/21 09:53 Cardiovascular status: normal Respiratory status: other (Nasal cannula) Airway patency: baseline Mental status: baseline Post-Op hydration status: normal Vital Signs: Last Vital Signs Temp 97.6 F 10/11/21 07:30 Pulse 74 10/11/21 09:44 Resp 16 10/11/21 07:30 BP 113/45 L 10/11/21 07:30 Pulse Ox 93 10/11/21 07:30 O2 Del Method Nasal Cannula 10/10/21 10:49 O2 Flow Rate 3 10/10/21 10:49 Pain Score (VAS): 03/01 I/O: Intake & Output 10/10/21 10/11/21 10/11/21 23:59 07:59 15:59 Intake Total 760 350 Output Total 350 450 Balance 410 -100 Laboratory Tests 10/11/21 05:35 10/11/21 05:35 10/10/21 10/10/21 10/10/21 04:45 04:45 04:45 WBC RBC Hgb Hct MCV MCH MCHC RDW Plt Count MPV Immature Gran % (Auto) Neut % (Auto) Lymph % (Auto) [place] % (Auto) Eos % (Auto) Baso % (Auto) Lymph # (Auto) [place] # (Auto) Eos # (Auto) Baso # (Auto) Abs Immat Gran (auto) Absolute Neuts (auto) Absolute Nucleated RBC Nucleated RBC % % Immature Plt Fraction Sodium Potassium Chloride Carbon Dioxide Anion Gap BUN Creatinine Estim Creat Clear Calc Estimated GFR Glucose Calcium Magnesium Iron 83 TIBC 222 L % Saturation 37 Transferrin 127 L Ferritin 535.00 H Total Bilirubin AST ALT Alkaline Phosphatase Total Protein Albumin Vitamin B12 954.0 H Folate 5.9 Urine Color Urine Appearance Urine pH Ur Specific [place] Urine Protein Urine Glucose (UA) Urine Ketones Ur Blood (Man) Urine Nitrate Urine Bilirubin Urine Urobilinogen Leukocyte Esterase Rfl Urine RBC Urine WBC Ur Squamous Epith Cells Hyaline Casts Urine Mucus Hepatitis A IgM Ab Negative Hep Bs Antigen Negative Hep B Core IgM Ab Negative Hepatitis C Ab Screen Negative 10/10/21 10/11/21 10/11/21 10:21 05:35 05:35 WBC 9.9 RBC 3.46 L Hgb 10.6 L Hct 33.7 L MCV 97.4 MCH 30.6 MCHC 31.5 L RDW 14.3 Plt Count 93 L MPV 12.0 H Immature Gran % (Auto) 0.4 Neut % (Auto) 76.6 H Lymph % (Auto) 15.2 L [place] % (Auto) 4.4 Eos % (Auto) 2.9 Baso % (Auto) 0.5 Lymph # (Auto) 1.50 [place] # (Auto) 0.4 Eos # (Auto) 0.3 Baso # (Auto) 0.1 Abs Immat Gran (auto) 0.04 H Absolute Neuts (auto) 7.6 H Absolute Nucleated RBC 0.0 Nucleated RBC % 0.0 % Immature Plt Fraction 6.3 Sodium 135 L Potassium 4.5 Chloride 104 Carbon Dioxide 28 Anion Gap 3 L BUN 24 H Creatinine 1.30 Estim Creat Clear Calc 39 Estimated GFR 52 L Glucose 100 Calcium 8.9 Magnesium 1.9 Iron TIBC % Saturation Transferrin Ferritin Total Bilirubin 1.5 H AST 96 H ALT 128 H Alkaline Phosphatase 254 H Total Protein 6.0 L Albumin 3.1 L Vitamin B12 Folate Urine Color Yellow Urine Appearance Clear Urine pH 5.0 Ur Specific [place] >= 1.030 Urine Protein 1+ H Urine Glucose (UA) Negative Urine Ketones 1+ H Ur Blood (Man) 1+ H Urine Nitrate Negative Urine Bilirubin Negative Urine Urobilinogen 0.2 Leukocyte Esterase Rfl Trace H Urine RBC 11-20 H Urine WBC 7-9 H Ur Squamous Epith Cells Rare Hyaline Casts 3-4 H Urine Mucus Rare Hepatitis A IgM Ab Hep Bs Antigen Hep B Core IgM Ab Hepatitis C Ab Screen Post-procedural complaints: none Patient Feedback: Patient satisfied with anesthetic care.
--- NOTE | 2021-10-11 10:00 | PM.IMPN ---
Progress Note: A&P Assessment and Plan (1) Femoral neck fracture: Qualifiers: Encounter type: initial encounter Fracture type: closed Laterality: right Qualified Code(s): S72.001A - Fracture of unspecified part of neck of right femur, initial encounter for closed fracture Code(s): S72.009A - Fracture of unspecified part of neck of unspecified femur, initial encounter for closed fracture Status: Acute Assessment and Plan: -POD 1 -continue with analgesics -ortho consult was placed. -Ortho to manage post op care -Surgical procedure performed 10/10/21 -Cefazolin 1gm x 3 bags -PT/OT when appropriate -Pain management: Morphine 4mg IV Q2H, norco 1 tab Q3H PRN -Bowel regimen: Mylanta 30ml PO Q6H PRN, Senna and Miralax scheduled -Anti-emetics: Ondansetron 4mg IV Q4H PRN -DVT deferred to Ortho, however, with the thrombocytopenia this would be contraindicated (2) Transaminitis: Code(s): R74.01 - Elevation of levels of liver transaminase levels Status: Acute Assessment and Plan: -AST/ALT 96/128, Alk Phos 254 -Total bilirubin 1.5 -Hep panel negative -No pain or tenderness of exam -Trend labs (3) HTN (hypertension) with goal to be determined: Code(s): I10 - Essential (primary) hypertension Status: Acute Assessment and Plan: -BP 116/56 -Continue home lisinopril, metoprolol -Trend bp -Adjust therapy as indicated (4) Hyperlipidemia: Code(s): E78.5 - Hyperlipidemia, unspecified Status: Acute Assessment and Plan: -continue with home medication when home medication reconciliation is complete (5) Hypothyroidism: Code(s): E03.9 - Hypothyroidism, unspecified Status: Acute Assessment and Plan: -thyroid 1.710 -continue with levothyroxine (6) Dementia: Qualifiers: Dementia behavioral disturbance: without behavioral disturbance Dementia type: unspecified type Qualified Code(s): F03.90 - Unspecified dementia without behavioral disturbance Code(s): F03.90 - Unspecified dementia without behavioral disturbance Status: Acute Assessment and Plan: -continue with home medications (7) BPH (benign prostatic hyperplasia): Code(s): N40.0 - Benign prostatic hyperplasia without lower urinary tract symptoms Status: Acute Assessment and Plan: -continue with home tamsulosin -Trend urine output -PRN bladder scan once urinary catheter is out (8) Gout: Code(s): M10.9 - Gout, unspecified Status: Acute Assessment and Plan: -continue with home allopurinol (9) Chronic renal failure, stage 3 (moderate): Code(s): N18.30 - Chronic kidney disease, stage 3 unspecified Status: Acute Assessment and Plan: -Current BUN/Cr 24/1.30 -Baseline appears to be 1.6-2 -Stable at this time -Trend labs -Avoid nephrotoxic medications (10) Anemia: Code(s): D64.9 - Anemia, unspecified Status: Acute Assessment and Plan: -Current H/H 10.6/33.7 -Anemia labs iron 83, TIBC 222, % sat 37, Transferrin 127, Ferritin 535 -Supplement not indicated -Trend labs -Transfuse if Hgb <7 (11) Thrombocytopenia: Code(s): D69.6 - Thrombocytopenia, unspecified Status: Acute Assessment and Plan: PLT today 93 Anemia labs within range Continue to trend Probably should hold DVT prophylaxis for now Time Spent With Patient Time with patient: Greater than 35 minutes Subjective Date/time seen: 10/11/21 10:00 Interval history: 10/11/21 1000 patient does know that he has an [facility] however he does not realize where he has a broken hip. He thinks he currently lives here. He could tell me his name his date of . He denies any pain at this time. Complete review of systems of the unable to be obtained due to renato
[2021-10-11] MEDS: CITALOPRAM HYDROBROMIDE 10 MG TABLET PO (20:21)
[2021-10-12 04:37] VITALS: BP 161/73; PULSE 70; RESP 18; TEMP 35.9; O2SAT 96
[2021-10-12 08:41] VITALS: PULSE 60
[2021-10-12] MEDS: MEMANTINE 10 MG TABLET PO (08:41)
[2021-10-12] MEDS: ATORVASTATIN 20 MG TABLET PO (08:41)
[2021-10-12] MEDS: CELECOXIB 200 MG CAPSULE PO (08:41)
[2021-10-12] MEDS: TAMSULOSIN HCL 0.4 MG CAPSULE PO (08:41)
[2021-10-12] MEDS: GALANTAMINE HYDROBROMIDE 8 MG TABLET 16 MG PO (08:41)
[2021-10-12] MEDS: MIRABEGRON 50 MG ER TABLET PO (08:41)
[2021-10-12] MEDS: CYANOCOBALAMIN 1,000 MCG TABLET 1000 MCG PO (08:41)
[2021-10-12] MEDS: METOPROLOL SUCCINATE EXT REL 25 MG TABCR PO (08:41)
[2021-10-12] MEDS: lisinopriL 10 MG TABLET PO (08:42)
[2021-10-12] MEDS: SENNA/DOCUSATE SODIUM TABLET 2 TAB PO (08:42)
[2021-10-12] MEDS: FLUTICASONE PROPIONATE 0.05% NA SPR 16 GM BTL (*BKC) 1 SPRAY NASAL (08:42)
[2021-10-12] MEDS: polyethylene glycoL 3350 17 GM POWD.PACK PO (08:42)
[2021-10-12] MEDS: allopurinoL 100 MG TABLET PO (08:42)
[2021-10-12] MEDS: ASPIRIN 81 MG CHEWABLE TABLET PO (08:42)
--- NOTE | 2021-10-12 09:00 | PM.DS ---
DS: Admitting Diagnosis Discharge Date 10/12/21 0900 Admitting Diagnosis Hip Fracture DS: Discharge Diagnosis Discharge Diagnosis (1) Femoral neck fracture: Qualifiers: Encounter type: initial encounter Fracture type: closed Laterality: right Qualified Code(s): S72.001A - Fracture of unspecified part of neck of right femur, initial encounter for closed fracture Code(s): S72.009A - Fracture of unspecified part of neck of unspecified femur, initial encounter for closed fracture Status: Acute Assessment and Plan: -POD 2 -continue with analgesics -ortho consult was placed. -Ortho to manage post op care -Surgical procedure performed 10/10/21 -Cefazolin 1gm x 3 bags -PT/OT when appropriate -Pain management: Morphine 4mg IV Q2H, norco 1 tab Q3H PRN -Bowel regimen: Mylanta 30ml PO Q6H PRN, Senna and Miralax scheduled -Anti-emetics: Ondansetron 4mg IV Q4H PRN -DVT deferred to Ortho, however, with the thrombocytopenia this would be contraindicated (2) Transaminitis: Code(s): R74.01 - Elevation of levels of liver transaminase levels Status: Acute Assessment and Plan: -AST/ALT 96/128, Alk Phos 254 -Total bilirubin 1.5 -Hep panel negative -No pain or tenderness of exam -Trend labs (3) HTN (hypertension) with goal to be determined: Code(s): I10 - Essential (primary) hypertension Status: Acute Assessment and Plan: -BP 116/56 -Continue home lisinopril, metoprolol -Trend bp -Adjust therapy as indicated (4) Hyperlipidemia: Code(s): E78.5 - Hyperlipidemia, unspecified Status: Acute Assessment and Plan: -continue with home medication when home medication reconciliation is complete (5) Hypothyroidism: Code(s): E03.9 - Hypothyroidism, unspecified Status: Acute Assessment and Plan: -thyroid 1.710 -continue with levothyroxine (6) Dementia: Qualifiers: Dementia behavioral disturbance: without behavioral disturbance Dementia type: unspecified type Qualified Code(s): F03.90 - Unspecified dementia without behavioral disturbance Code(s): F03.90 - Unspecified dementia without behavioral disturbance Status: Acute Assessment and Plan: -continue with home medications (7) BPH (benign prostatic hyperplasia): Code(s): N40.0 - Benign prostatic hyperplasia without lower urinary tract symptoms Status: Acute Assessment and Plan: -continue with home tamsulosin -Trend urine output -PRN bladder scan once urinary catheter is out (8) Gout: Code(s): M10.9 - Gout, unspecified Status: Acute Assessment and Plan: -continue with home allopurinol (9) Chronic renal failure, stage 3 (moderate): Code(s): N18.30 - Chronic kidney disease, stage 3 unspecified Status: Acute Assessment and Plan: -Current BUN/Cr 24/1.30 -Baseline appears to be 1.6-2 -Stable at this time -Trend labs -Avoid nephrotoxic medications (10) Anemia: Code(s): D64.9 - Anemia, unspecified Status: Acute Assessment and Plan: -Current H/H 10.6/33.7 -Anemia labs iron 83, TIBC 222, % sat 37, Transferrin 127, Ferritin 535 -Supplement not indicated -Trend labs -Transfuse if Hgb <7 (11) Thrombocytopenia: Code(s): D69.6 - Thrombocytopenia, unspecified Status: Acute Assessment and Plan: PLT today 93 Anemia labs within range Continue to trend Probably should hold DVT prophylaxis for now DS: Summary Hospital Course Hospital Course: Patient is a 6-year-old male with a past medical history of dementia, hypertension, hyperlipidemia, chronic kidney disease who presented to the ED after a fall. Patient was experiencing pain and x-ray of the right hip was taken and showed a fracture. Orthopedics was consulted. Patient went for trujillo
[2021-10-12 10:40] VITALS: BP 124/61; PULSE 79; RESP 16; TEMP 36.3; O2SAT 99
[2021-10-12 11:15] VITALS: PULSE 80; O2SAT 96
--- NOTE | 2021-10-12 11:33 | PM.PNORT ---
Progress Note: A&P Assessment and Plan (1) Femoral neck fracture: Qualifiers: Encounter type: initial encounter Fracture type: closed Laterality: right Qualified Code(s): S72.001A - Fracture of unspecified part of neck of right femur, initial encounter for closed fracture Code(s): S72.009A - Fracture of unspecified part of neck of unspecified femur, initial encounter for closed fracture Status: Acute Assessment and Plan: POD #2 : Right Hip Pinning PT/OT as tolerated. WBAT. Walker. HIGH FALL RISK. Continue pain control. Ice hip. Protect skin. SCDs. Incentive Spirometry Use. Resume home 81mg Aspirin dose. No additional DVT prophylaxis. Monitor Dressing. Change prior to discharge. Bowel Regimen. Dispo: SNF pending medical stability, likely today. Subjective Subjective Date/Time Seen: 10/12/21 11:33 Post Op day: 2 Interval history: POD #2: Right Hip Pinning Out of bed in chair. Improvement in mentation today. Denies significant pain right hip. Endorses weakness. Review of Systems Review of Systems: All systems reviewed & are unremarkable except as noted in HPI and below Exam Const: General: comfortable and no acute distress Resp: Effort & Inspection: normal respiratory effort Cardio: Rate: regular rate Rhythm: regular rhythm GI: Inspection: non-distended Skin: General skin exam: normal color Other: Incision right hip c/d/i. Surrounding tissue without redness/warmth. Mild swelling consistent with recent surgery. No drainage. Extrem: Right lower extremity: normal to inspection, normal capillary refill, hip/thigh Details: tenderness Location: of the hip (Thigh soft ) Location: laterally and anteriorly, swelling Location: at the hip, abnormal ROM (limited consistent with recent surgery ) Details: pain with active ROM during and pain with passive ROM during and other (Incision c/d/i. ); no deformity and no unusual warmth, knee Details: normal to inspection; no tenderness and no swelling, lower leg (Negative Doreen's Sign ) Details: normal to inspection and no edema; no tenderness, ankle (+ankle dorsiflexion/plantarflexion) Details: normal to inspection and no edema; no tenderness, no swelling and no ecchymosis and foot Details: normal capillary refill, toes with normal ROM, vascular exam Details: dorsalis pedis pulse present and motor-sensory exam Details: light-touch normal; no tenderness Objective Data Vital Signs Vital Signs: Vital Signs - 24 hr 10/11/21 16:00 10/11/21 20:44 10/11/21 20:00 Temperature 36.3 C L 36.2 C L Pulse Rate 71 64 Respiratory Rate 16 20 Blood Pressure 127/52 L 124/48 L Pulse Oximetry 94 94 Oxygen Delivery Room Air 10/12/21 04:37 10/12/21 08:41 10/12/21 10:40 Temperature 35.9 C L 36.3 C L Pulse Rate 70 60 79 Respiratory Rate 18 16 Blood Pressure 161/73 H 124/61 Pulse Oximetry 96 99 Oxygen Delivery 10/12/21 11:15 Temperature Pulse Rate 80 Respiratory Rate Blood Pressure Pulse Oximetry 96 Oxygen Delivery Room Air Intake/Output Intake/Output: Intake & Output 10/09/21 10/10/21 10/11/21 10/12/21 23:59 23:59 23:59 23:59 Intake Total 370 1430 1230 430 Output Total 250 680 750 500 Balance 120 750 480 -70 Meds/Results Medications: Active Medications Generic Name Dose Route Start Last Admin Trade Name Freq PRN Reason Stop Dose Admin Acetaminophen 650 mg 10/10/21 09:45 Acetaminophen 325 Mg Tablet PO Q6H PRN Mild Pain (1-3) or Fever Hydrocodone Bitart/Acetaminophen 1 tab 10/10/21 09:45 10/11/21 20:21 Hydrocodone/Acetaminophen (*Crx) 5-325 Mg Tablet PO 1 tab Q3H PRN Administration Pain Rated 4-6 Al Hydrox/Mg Hydrox/Simethicone 30 ml 10/10/21 09:45 Mag Hydrox/Al Hydrox/Simeth 30 Ml Udc PO Q6H PRN Indigestion Allopurinol 100 mg 10/10/21 09:00 10/12/21 08:42 Allopurinol 100 Mg Tablet PO 100 mg DAILY MICHAEL Administration Aspirin 81 mg 10/10/21
== END 2021-10-12 12:40 | DRG 482 ==
LOC: ANHED 12:11 → ANH2MED 13:22
PROVIDERS: Nurse Practitioner; Orthopaedic Surgery; Physician Assistant; Admitting Provider Internal Medicine; Emergency Provider Emergency Medicine; PCP Internal Medicine; Visit Provider Nurse Practitioner
PROC: 0QS634Z Reposition Right Upper Femur with Internal Fixation Device, Percutaneous Approach (ICD-10-PCS; principal; 2021-10-10 08:00)
DX: S72.042A Displaced fracture of base of neck of left femur, initial encounter for closed fracture (principal); I25.10 Atherosclerotic heart disease of native coronary artery without angina pectoris; I12.9 Hypertensive chronic kidney disease with stage 1 through stage 4 chronic kidney disease, or unspecified chronic kidney disease; N18.30 Chronic kidney disease, stage 3 unspecified; E11.22 Type 2 diabetes mellitus with diabetic chronic kidney disease; D69.6 Thrombocytopenia, unspecified; D64.9 Anemia, unspecified; C61 Malignant neoplasm of prostate; E78.5 Hyperlipidemia, unspecified; E03.9 Hypothyroidism, unspecified; N40.0 Benign prostatic hyperplasia without lower urinary tract symptoms; M10.9 Gout, unspecified; W19.XXXA Unspecified fall, initial encounter; F03.90 Unspecified dementia, unspecified severity, without behavioral disturbance, psychotic disturbance, mood disturbance, and anxiety; Z95.1 Presence of aortocoronary bypass graft; Z79.82 Long term (current) use of aspirin; Z90.49 Acquired absence of other specified parts of digestive tract; Z87.891 Personal history of nicotine dependence
CPT/HCPCS: 36415; 70450; 71045; 72125; 73502; 80053; 80074; 81001; 82607; 82728; 82746; 83540; 83550; 83605; 83690; 83735; 84443; 84466; 85025; 85055; 85610; 85730; 87086; 93005; 96361; 96374; 96375; 97110; 97116; 97162; 97165; 97530; 97535; 99199; 99285; A9270; C1769; G0378; J0330; J0690; J1100; J1170; J1630; J2270; J2370; J2405; J2704; J3010; J3480; J7040; J7120

== ENCOUNTER 2021-12-06 21:39 | Emergency (ER) | payer MEDICARE, OTHER, SELFPAY ==
--- NOTE | ~2021-12-06 | CT_ITS ---
EXAMINATION: CT brain wo con DATE: 12/06/2021 22:09 INDICATION: head injury . TECHNIQUE: Computed tomography (CT) of the head was performed without intravenous contrast. The mA wa s adjusted according to patient size. Iterative reconstruction technique was employed. The dose-lengt h product was 605.33 mGy-cm. COMPARISON: 10/09/2021. FINDINGS: No acute intracranial hemorrhage or extra-axial fluid collection. No hydrocephalus, mass, or herniation. No acute ischemic infarct. Unremarkable dural venous sinus attenuation. No acute osseous abnormality. Trace left mastoid fluid, the remaining aerated spaces are clear. Moderate atrophy and chronic white matter change. Atherosclerotic intracranial calcification. Focal o ld left basal ganglia lacunar infarcts. Bilateral lens replacements. IMPRESSION: No acute intracranial process. Please also refer to report on the concurrent CT face for additional d etail. Reviewed, dictated and finalized at location K. IMPRESSION: No acute intracranial process. Please also refer to report on the concurrent CT face for additional detail.
--- NOTE | ~2021-12-06 | CT_ITS ---
EXAMINATION: CT facial & cervical spine wo DATE: 12/06/2021 22:14 INDICATION: facial injury, fall TECHNIQUE: Computed tomography (CT) of the maxillofacial region and cervical spine was performed with out intravenous contrast. Automated exposure control and iterative reconstruction technique were empl oyed. The dose-length product was 444.61 mGy-cm. COMPARISON: None FINDINGS: CERVICAL: Vertebral Body Alignment: Intact. Craniocervical and atlantoaxial alignment: Moderate degenerative change with pannus. Alignment intact . Osseous structures/fracture: No evidence of a lytic or blastic process in the visualized spine. No e vidence of acute fracture. Cervical soft tissues: The paraspinal soft tissues planes are maintained. Degenerative changes: Degenerative changes, without severe neural foraminal or central canal narrowin g. FACE: Soft Tissues: Soft tissue swelling over the nose. Facial bones: Comminuted nasal bone fractures, with impaction and leftward displacement. Mildly disp laced fractures of the anterior osseous nasal septum. Old right medial orbital wall fracture. Nasal i mplant.. No lytic or blastic process. Eyes: The globes are intact. Bilateral lens replacements. The soft tissue planes of the orbits are m aintained. Paranasal Sinuses: Trace left mastoid fluid, mild inferior frontal, anterior ethmoid, left maxillary mucosal thickening, the remaining visualized aerated spaces are clear. Foreign Bodies: No radiopaque foreign bodies. Other Findings: None. IMPRESSION: No acute fracture or traumatic malalignment in the cervical spine. Comminuted, impacted and displaced bilateral nasal bone fractures, with mildly displaced fractures of the anterior osseous nasal septum . Reviewed, dictated and finalized at location K. IMPRESSION: No acute fracture or traumatic malalignment in the cervical spine. Comminuted, impacted and displaced bilateral nasal bone fractures, with mildly displaced fr actures of the anterior osseous nasal septum.
[2021-12-06 21:40] VITALS: BP 184/75; PULSE 68; RESP 18; TEMP 36.5; O2SAT 97
[2021-12-06 22:28] VITALS: PULSE 70; RESP 18; O2SAT 99
--- NOTE | 2021-12-06 22:29 | ED.FALL ---
HPI - Fall General Chief Complaint: Fall Stated Complaint: FALL History of Present Illness HPI Narrative: 86-year-old male presented to the emergency department for evaluation after having a head injury. Patient reports he has frequent falls. Patient was supposed to be using a walker but was not using the walker when he had the fall today. Patient states he fell forward and struck his face. Patient denies any loss of consciousness. longterm was concerned so they called EMS for transport to the emergency room. Upon arrival to the emergency room patient is alert but is complaining of nasal pain. Patient does have history of dementia but is at his baseline per family. Patient has a past medical history of dementia, hypothyroidism, hypertension, hyperlipidemia, chronic kidney disease. Related Data Home Medications Medication Instructions Recorded Confirmed aspirin 81 mg chewable tablet 81 mg PO DAILY 02/16/19 10/09/21 atorvastatin 20 mg tablet 20 mg PO DAILY 02/16/19 10/09/21 metoprolol succinate 25 mg 25 mg PO DAILY 02/16/19 10/09/21 tablet,extended release 24 hr (Toprol XL) acetaminophen 500 mg tablet 500 mg PO Q8H PRN Pain (Scale 09/20/21 10/09/21 (Tylenol Extra Strength) Score 1-3) allopurinol 100 mg tablet 100 mg PO DAILY 09/20/21 10/09/21 celecoxib 200 mg capsule 200 mg PO DAILY 09/20/21 10/09/21 cyanocobalamin (vitamin B-12) 1,000 mcg PO DAILY 09/20/21 10/09/21 1,000 mcg tablet mirabegron 50 mg tablet,extended 50 mg PO DAILY 09/20/21 10/09/21 release 24 hr (Myrbetriq) nitroglycerin 0.4 mg sublingual 0.4 mg sublingual Q5M PRN Chest 09/20/21 10/09/21 tablet Pain tamsulosin 0.4 mg capsule 0.4 mg PO DAILY 09/20/21 10/09/21 cetirizine 10 mg tablet 5 mg PO DAILY 09/25/21 10/09/21 fluticasone propionate 50 1 spray intranasal DAILY 09/25/21 10/09/21 mcg/actuation nasal spray,suspension galantamine 4 mg tablet 16 mg PO BID 09/25/21 10/09/21 levothyroxine 50 mcg tablet 50 mcg PO DAILY 09/25/21 10/09/21 (Synthroid) memantine 10 mg tablet 10 mg PO BID 09/25/21 10/09/21 Allergies Allergy/AdvReac Type Severity Reaction Status Date / Time No Known Allergies Allergy Verified 10/09/21 11:36 Review of Systems Review of Systems: CONSTITUTIONAL: Denies fever, chills, or sweats. EYES: Denies visual changes, redness, or discharge. ENT: See HPI CARDIOVASCULAR: Denies chest pain, palpitations, or edema. RESPIRATORY: Denies cough or dyspnea. GASTROINTESTINAL: Denies abdominal pain, nausea, vomiting, or diarrhea. GENITOURINARY: Denies dysuria or hematuria. SKIN: Denies rash or itching. MUSCULOSKELETAL: Denies back pain, joint pain, or myalgia. NEUROLOGIC: Denies headache, numbness, or weakness. 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 Basal cell carcinoma of scalp BPH (benign prostatic hyperplasia) CAD (coronary artery disease) Cervical compression fracture Chronic renal failure, stage 3 (moderate) COVID-19 Dementia DM2 (diabetes mellitus, type 2) Gout HTN (hypertension) with goal to be determined Hyperlipidemia Hypothyroidism Lumbar compression fracture Prostate cancer Urinary tract infection Surgical History Surgical History (Updated 10/10/21 @ 07:42 by Niranjan Wolfe APN-C) H/O sinus surgery History of removal of pigmented skin lesion History of tonsillectomy Hx laparoscopic cholecystectomy Hx of CABG Family History Family History Mother Acute myocardial infarction Father Cancer Sibling Cancer Social History Social History Social History: the patient is and lives with his . He tells me that he has 3 children. His daughter Regina is the power performance test architect for healthcare. He remains sides at [facility] He is a
== END 2021-12-07 06:03 ==
PROVIDERS: Emergency Provider Emergency Medicine; PCP Family Medicine
DX: S02.2XXA Fracture of nasal bones, initial encounter for closed fracture (principal); F03.90 Unspecified dementia, unspecified severity, without behavioral disturbance, psychotic disturbance, mood disturbance, and anxiety; R29.6 Repeated falls; E03.9 Hypothyroidism, unspecified; E78.5 Hyperlipidemia, unspecified; I12.9 Hypertensive chronic kidney disease with stage 1 through stage 4 chronic kidney disease, or unspecified chronic kidney disease; E11.22 Type 2 diabetes mellitus with diabetic chronic kidney disease; N18.30 Chronic kidney disease, stage 3 unspecified; N40.0 Benign prostatic hyperplasia without lower urinary tract symptoms; I25.10 Atherosclerotic heart disease of native coronary artery without angina pectoris; M10.9 Gout, unspecified; M19.90 Unspecified osteoarthritis, unspecified site; Z95.1 Presence of aortocoronary bypass graft; Z85.828 Personal history of other malignant neoplasm of skin; Z85.46 Personal history of malignant neoplasm of prostate; Z86.16 Personal history of COVID-19; Z87.440 Personal history of urinary (tract) infections; Z79.82 Long term (current) use of aspirin; W18.30XA Fall on same level, unspecified, initial encounter
CPT/HCPCS: 70450; 70486; 72125; 99284

== ENCOUNTER → 2023-08-01 12:08 | Outpatient (REF) | payer MEDICARE, OTHER, SELFPAY | LOC: ANHLAB 12:08 | PROVIDERS: PCP Family Medicine; Visit Provider Plastic Surgery | DX: C44.311 Basal cell carcinoma of skin of nose (principal) | CPT/HCPCS: 88305 ==

== ENCOUNTER 2023-08-25 06:14 | Emergency (ER) | payer MEDICARE, OTHER, SELFPAY ==
--- NOTE | ~2023-08-25 | CT_ITS ---
Noncontrast CT scan of the cervical spine Technique: Multiple contiguous axial [address] images of the cervical spine were obtained and rec onstructed in 2D sagittal and coronal planes on the acquisition scanner. Dose reduction technique was used on this scan by utilizing automated exposure control, adjustment of the mA and/or kV according to patient size. The dose-length product (DLP) was 408.63 mGy-cm. Clinical History: Pain Findings: No fractures or dislocations. There are minimal degenerative disc changes and minimal face t joint degenerative changes. There is disc osteophyte complex at C5-C6. No prevertebral soft tissue swelling. Impression: No fracture or subluxation of the cervical spine. Reviewed, dictated and finalized at location . Impression: No fracture or subluxation of the cervical spine.
--- NOTE | ~2023-08-25 | CT_ITS ---
CT head without contrast Indication: Status post fall COMPARISON: 12/06/2021 Technique: Serial scans were obtained through the brain without the administration of contrast. Dose reduction technique was used on this scan by utilizing automated exposure control and iterative recon struction technique. The dose-length product (DLP) was 408.63 mGy-cm. Findings: There is no evidence of intracranial hemorrhage, mass lesion, or acute infarct. The ventri cles and subarachnoid spaces are dilated, consistent with mild atrophy. Low attenuation regions are seen within the periventricular white matter bilaterally, likely representing changes from chronic mi crovascular ischemic disease. There is no evidence of edema, mass effect or midline shift. The visu alized paranasal sinuses and mastoid air cells are clear. Impression: No intracranial hemorrhage, mass, or acute infarct. Atrophy and chronic white matter changes, as above. Reviewed, dictated and finalized at location . Impression: No intracranial hemorrhage, mass, or acute infarct. Atrophy and chronic white matter changes, as above.
[2023-08-25 06:15] VITALS: BP 187/72; PULSE 61; RESP 16; TEMP 36.5; O2SAT 96
[2023-08-25 07:09] VITALS: BP 160/80; PULSE 65; RESP 19; O2SAT 96
--- NOTE | 2023-08-25 07:13 | ED.GENADULT ---
HPI - General Adult General Chief complaint: Fall Stated complaint: fall Time Seen by Provider: 08/25/23 06:34 History of Present Illness HPI narrative: Patient is a 80-year-old gentleman who presents emergency department with chief complaint of head injury. [place] and slipped on his urine on the floor patient struck the back of his head had a small a laceration/abrasion the back of his scalp patient does not remember the fall but has no other complaints other than some pain with the laceration is Related Data Home Medications Medication Instructions Recorded Confirmed aspirin 81 mg chewable tablet 81 mg PO DAILY 02/16/19 10/09/21 acetaminophen 500 mg tablet 500 mg PO Q8H PRN Pain (Scale 09/20/21 10/09/21 (Tylenol Extra Strength) Score 1-3) cyanocobalamin (vitamin B-12) 1,000 mcg PO DAILY 09/20/21 10/09/21 1,000 mcg tablet nitroglycerin 0.4 mg sublingual 0.4 mg sublingual Q5M PRN Chest 09/20/21 10/09/21 tablet Pain cetirizine 10 mg tablet 5 mg PO DAILY 09/25/21 10/09/21 fluticasone propionate 50 1 spray intranasal DAILY 09/25/21 10/09/21 mcg/actuation nasal spray,suspension Allergies Allergy/AdvReac Type Severity Reaction Status Date / Time No Known Allergies Allergy Verified 08/01/23 11:04 Review of Systems Review of Systems: A 10 system review of systems was completed on the patient and is negative except for what is stated in the HPI. Nursing and ancillary documentation was reviewed. PENDING SALE TO [facility] Past Medical History Medical History Acute kidney injury Anxiety Arthritis Basal cell carcinoma (BCC) of left postauricular region Basal cell carcinoma of scalp BPH (benign prostatic hyperplasia) CAD (coronary artery disease) Cervical compression fracture Chronic renal failure, stage 3 (moderate) COVID-19 Dementia DM2 (diabetes mellitus, type 2) Gout HTN (hypertension) with goal to be determined Hyperlipidemia Hypothyroidism Lumbar compression fracture Prostate cancer Urinary tract infection Surgical History Surgical History H/O sinus surgery History of removal of pigmented skin lesion History of tonsillectomy Hx laparoscopic cholecystectomy Hx of CABG Family History Family History Mother Acute myocardial infarction Father Cancer Sibling Cancer Social History Social History Social History: the patient is and lives with his . He tells me that he has 3 children. His daughter Regina is the power production control supervisor for healthcare. He remains sides at [facility] He is a former smoker and denies any alcohol marijuana or illicit drugs. Code status dnr Smoking status: Former smoker Tobacco type: cigarettes Alcohol intake: former Substance use: never Living arrangements: assisted living Spiritual care concerns: No Exam Narrative: GENERAL: Well-appearing, well-nourished, and in no acute distress. HEAD: Normocephalic, 1.5 cm abrasion/superficial avulsion non gaping well-approximated not requiring sutures. EYES: PERRLA and EOMI. ENT: Nares clear, no rhinorrhea or epistaxis. Mucous membranes moist. NECK: Supple. CHEST: Clear to auscultation. No respiratory distress. HEART: Regular rate and rhythm. No murmur heard. Normal peripheral pulses. ABDOMEN: Soft, nontender, nondistended, normal active bowel sounds. EXTREMITIES: Normal range of motion. No edema. SKIN: Warm, dry, no rash. NEURO: No focal deficits. Alert and oriented x3. PSYCH: Normal mood and affect. Course Vital Signs Vital signs: Vital Signs Temperature 36.5 C 08/25/23 06:15 Pulse Rate 61 08/25/23 06:15 Respiratory Rate 16 08/25/23 06:15 Blood Pressure 187/72 H 08/25/23 06:15 Pulse Oximetry 96
[2023-08-25] MEDS: TETANUS,DIPHTHERIA,AC PERTUSSIS ADULT (0.5 ML) BOOSTRIX IM (07:25)
[2023-08-25 08:42] VITALS: BP 159/76; PULSE 80; RESP 20; O2SAT 96
== END 2023-08-25 08:48 ==
LOC: ANHED 07:45
PROVIDERS: Emergency Provider Emergency Medicine; PCP Family Medicine
DX: S00.01XA Abrasion of scalp, initial encounter (principal); Z23 Encounter for immunization; F03.90 Unspecified dementia, unspecified severity, without behavioral disturbance, psychotic disturbance, mood disturbance, and anxiety; E11.22 Type 2 diabetes mellitus with diabetic chronic kidney disease; I12.9 Hypertensive chronic kidney disease with stage 1 through stage 4 chronic kidney disease, or unspecified chronic kidney disease; N18.30 Chronic kidney disease, stage 3 unspecified; I25.10 Atherosclerotic heart disease of native coronary artery without angina pectoris; E78.5 Hyperlipidemia, unspecified; E03.9 Hypothyroidism, unspecified; N40.0 Benign prostatic hyperplasia without lower urinary tract symptoms; M19.90 Unspecified osteoarthritis, unspecified site; M10.9 Gout, unspecified; F41.9 Anxiety disorder, unspecified; Z66 Do not resuscitate; Z95.1 Presence of aortocoronary bypass graft; Z86.16 Personal history of COVID-19; Z87.440 Personal history of urinary (tract) infections; Z85.828 Personal history of other malignant neoplasm of skin; Z85.46 Personal history of malignant neoplasm of prostate; Z87.891 Personal history of nicotine dependence; Z90.49 Acquired absence of other specified parts of digestive tract; Z79.82 Long term (current) use of aspirin; Z79.899 Other long term (current) drug therapy; W01.0XXA Fall on same level from slipping, tripping and stumbling without subsequent striking against object, initial encounter
CPT/HCPCS: 70450; 72125; 90471; 90715; 99284